=== PATIENT | female | born 1950 | race Two or more races ===

== ENCOUNTER 2018-02-21 15:28 | Emergency (ER) | payer OTHER ==
[~2018-02-21] VITALS: Ht 160 cm; Wt 90.7 kg
[~2018-02-21 15:28] MED LIST: ADVAIR 2501 DISK W/1 IH; ALBUTEROL; CLARINEX5 MG/TAB PO; PROVENTIL3 ML/2.5 M IH; SINGULAIR
[2018-02-21] MEDS ORDERED: NEURONTIN300 MG (16:40)
[2018-02-21] MEDS ORDERED: LIPITOR40 MG (16:40)
[2018-02-21] MEDS ORDERED: SYNTHROID200 MCG (16:40)
[2018-02-21] MEDS ORDERED: METFORMIN HCL500 MG (16:40)
[2018-02-21] MEDS ORDERED: ASPIR 8181 MG (16:41)
[2018-02-21] MEDS ORDERED: CALCITRIOL0.5 MCG (16:41)
[2018-02-21] MEDS ORDERED: ISOSORBIDE DINI30 MG (16:42)
[2018-02-21] MEDS ORDERED: FUROSEMIDE20 MG (16:42)
[2018-02-21] MEDS ORDERED: SINGULAIR10 MG (16:43)
[2018-02-21] MEDS ORDERED: DOLOGESIC-DF 51 EACH (16:43)
[2018-02-21] MEDS ORDERED: PEPCID20 MG (16:43)
[2018-02-21] MEDS ORDERED: ATACAND16 MG (16:43)
[2018-02-21] MEDS ORDERED: CATAFLAN (16:44)
== END 2018-02-21 20:58 | disposition home or self-care (01) ==
LOC: ER 15:28
DX: R19.04 Left lower quadrant abdominal swelling, mass and lump (principal)

== ENCOUNTER 2018-06-26 08:58 | Emergency (ER) | payer OTHER ==
[~2018-06-26] VITALS: Ht 157.5 cm; Wt 104.3 kg
[~2018-06-26 08:58] MED LIST changes: +ASPIR 8181 MG; +ATACAND16 MG; +CALCITRIOL0.5 MCG; +CATAFLAN; +DOLOGESIC-DF 51 EACH; +FUROSEMIDE20 MG; +ISOSORBIDE DINI30 MG; +LIPITOR40 MG; +METFORMIN HCL500 MG; +NEURONTIN300 MG; +PEPCID20 MG; +SINGULAIR10 MG; +SYNTHROID200 MCG
[2018-06-26] MEDS ORDERED: ADVAIR HFA 115/12 GM (09:09)
== END 2018-06-26 18:41 | disposition home or self-care (01) ==
LOC: ER 08:58
DX: J45.998 Other asthma (principal); J22 Unspecified acute lower respiratory infection; J11.1 Influenza due to unidentified influenza virus with other respiratory manifestations

== ENCOUNTER 2024-10-12 16:23 | Inpatient (IN) | payer OTHER ==
[~2024-10-12] VITALS: Ht 162.6 cm; Wt 90.7 kg
[~2024-10-12 16:23] MED LIST changes: +ADVAIR HFA 115/12 GM
[2024-10-12] MEDS ORDERED: METFORMIN HCL500 M4 PO (16:27)
[2024-10-12] MEDS ORDERED: ATORVASTATIN CA40 MG PO (16:27)
[2024-10-12] MEDS ORDERED: CLONAZEPAM0.5 MG PO (16:27)
[2024-10-12] MEDS ORDERED: ST. JOSEPH ASPI81 M2 PO (16:28)
[2024-10-12] MEDS ORDERED: CANDESARTAN CIL16 MG PO (16:28)
[2024-10-12] MEDS ORDERED: SYNTHROID175 MCG PO (16:28)
[2024-10-12] MEDS ORDERED: BUSPIRONE HCL10 MG PO (16:28)
[2024-10-12 17:20] LABS: HEMATOCRIT 24.8 % (36.0-45.00); MEAN CELL VOLUME 88.9 fL (80.00-100.00); MEAN CORPUSCULAR HGB CONC 33.2 g/dl (32.0-36.0); PLATELET COUNT 214 K/uL (150-450); RED BLOOD COUNT 2.79 M/uL (4.00-6.00); RED CELL DISTRIBUTION WIDTH 14.9 % (11.5-14.5)
[2024-10-12 17:21] LABS: HEMOGLOBIN 8.2 g/dL (12.0-15.00); MEAN CORPUSCULAR HEMOGLOBIN 29.3 pg (27.00-32.0)
[2024-10-12 17:26] LABS: ERYTHROCYTE SEDIMENTATION RATE 125 mm/hr
[2024-10-12 17:32] LABS: ABG PH 7.416 (7.35-7.45); ABG PO2 64.1 mmHg (80-100); BASE EXCESS 10.6 mmol/l; BICARBONATE 37.7 mmol/l (23-25); SaO2 93.1 %; Tco2 39.6 mmol/l
[2024-10-12] MEDS ORDERED: LEVALBUTEROL HCL 1.25 MG/3 ML SOLUTION IH SCH (17:37)
[2024-10-12] MEDS ORDERED: LEVALBUTEROL HCL 1.25 MG/3 ML SOLUTION IH ONE ×2 (17:38→22:13)
[2024-10-12 17:45] LABS: allen test SATISFACTORY; o2 21 %; puncture site BRADIAL RIGHT
[2024-10-12 17:45] LABS: ALBUMIN 2.3 gm/dL (3.4-5.0); BILIRUBIN TOTAL 0.48 mg/dL (0.3-1.2); CALCIUM 7.7 mg/dL (8.5-10.1); CREATININE SERUM 0.38 mg/dL (0.55-1.02); GFR 165.09; GLOBULINA 3.2 G/DL (2.4-3.5); POTASSIUM 3.83 mEq/L (3.5-5.1); TOTAL PROTEIN 5.5 gm/dL (6.4-8.2)
[2024-10-12 17:53] LABS: C-REACTIVE PROTEIN 7.39 MG/DL (0.00-0.29)
[2024-10-12 17:57] LABS: URINE APPEARANCE Clear; URINE BILIRRUBIN Negative (NEGATIVE); URINE BLOOD Negative; URINE COLOR Yellow; URINE GLUCOSE Negative (NEGATIVE); URINE KETONE Negative (NEGATIVE); URINE LEUKOCYTE Negative; URINE NITRATE Negative; URINE PROTEIN Trace (NEGATIVE)
[2024-10-12 18:00] LABS: URINE BACTERIA 8.5 uL (0.0-1933); URINE EPITHELIAL CELLS 6.4 uL (0.0-38.8); URINE RBC 8.2 uL (0.0-20.8); URINE WBC 11.2 uL (0.0-23.2)
[2024-10-12 18:27] LABS: URINE CAST 0.14 uL (0.0-1.40); URINE EPITHELIAL CELLS 0-4 /HPF
[2024-10-12] MEDS ORDERED: PIPERACILLIN/TAZOBACTAM SODIUM 3.375 GM in DEXTROSE 5 % IN WATER 100 ML IV SCH (19:34)
[2024-10-12] MEDS ORDERED: IPRATROPIUM BROMIDE 0.5 MG/2.5 ML AMPUL.NEB IH SCH (19:38)
[2024-10-12] MEDS ORDERED: FUROsemide 20 MG/2 ML VIAL IV SCH ×2 (19:45→21:00)
[2024-10-12] MEDS ORDERED: INSULIN LISPRO 1,000 UNIT/10 ML UNITS SUBCUTANEO PRN (19:45)
[2024-10-12] MEDS ORDERED: DEXTROSE 50 % IN WATER 0.5 G/ML DISP.SYRIN IV PRN (19:45)
[2024-10-12] MEDS ORDERED: ACETAMINOPHEN 500 MG GEL..CAP PO PRN (19:45)
[2024-10-12] MEDS ORDERED: IPRATROPIUM BROMIDE 0.5 MG/2.5 ML AMPUL.NEB IH ONE (22:13)
[2024-10-13] VITALS (9 sets, daily range): BP systolic 97–120; BP diastolic 52–70; O2SAT 96–100
[2024-10-13] MEDS ORDERED: LEVALBUTEROL HCL 1.25 MG/3 ML SOLUTION IH ONE (00:12)
[2024-10-13] MEDS ORDERED: IPRATROPIUM BROMIDE 0.5 MG/2.5 ML AMPUL.NEB IH ONE (00:12)
[2024-10-13] MEDS ORDERED: PIPERACILLIN/TAZOBACTAM SODIUM 3.375 GM VIAL IV ONE (00:26)
[2024-10-13] MEDS ORDERED: FUROsemide 20 MG/2 ML VIAL ONE (00:26)
[2024-10-13 01:47] LABS: ABG PH 7.414 (7.35-7.45)
[2024-10-13 01:48] LABS: BASE EXCESS 11.9 mmol/l; BICARBONATE 39.4 mmol/l (23-25); SaO2 97.7 %; Tco2 41.4 mmol/l; allen test SATISFACTORY; o2 35 %; puncture site RADIAL LEFT
[2024-10-13] MEDS ORDERED: LEVOTHYROXINE SODIUM 175 MCG TABLET PO SCH (06:00)
[2024-10-13] MEDS ORDERED: FAMOTIDINE/PF 20 MG in 0.9 % SODIUM CHLORIDE 8 ML IV PUSH SCH (09:00)
[2024-10-13] MEDS ORDERED: BUSPIRONE HCL 5 MG TABLET PO SCH ×2 (09:00→11:56)
[2024-10-13] MEDS ORDERED: CANDESARTAN CILEXETIL 16 MG TABLET PO SCH (09:00)
[2024-10-13] MEDS ORDERED: ENOXAPARIN SODIUM 40 MG/0.4 ML SYRINGE SUBCUTANEO SCH (09:00)
[2024-10-13] MEDS ORDERED: ATORVASTATIN CALCIUM 40 MG TABLET PO SCH (09:00)
[2024-10-13] MEDS ORDERED: METHYLPREDNISOLONE SOD SUCC 40 MG VIAL IV SCH (09:37)
[2024-10-13] MEDS ORDERED: SOD FERRIC GLUC COMPLX/SUCROSE 62.5 MG in 0.9 % SODIUM CHLORIDE 50 ML IV SCH (12:05)
[2024-10-13] MEDS ORDERED: LORazepam 2 MG/ML VIAL IV SCH (12:05)
[2024-10-13 14:08] LABS: ABG PH 7.436 (7.35-7.45); ABG PO2 94.2 mmHg (80-100); BASE EXCESS 12.4 mmol/l; BICARBONATE 39.5 mmol/l (23-25); SaO2 97.8 %; Tco2 41.3 mmol/l
[2024-10-13 14:49] LABS: allen test SATISFACTORY; o2 35 %; puncture site RADIAL RIGHT
[2024-10-13] MEDS ORDERED: LINEZOLID IN DEXTROSE 5% 600 MG/300 ML PIGGYBAG IV STA (15:54)
[2024-10-13 18:22] LABS: ABG PO2 168.9 mmHg (80-100); BASE EXCESS 12.7 mmol/l; BICARBONATE 40.7 mmol/l (23-25); SaO2 99.6 %; Tco2 42.7 mmol/l
[2024-10-13 18:30] LABS: ABG PH 7.407 (7.35-7.45); ABG pCO2 66.1 mmHg (35-45); allen test SATISFACTORY; o2 36 %; puncture site RADIAL LEFT
[2024-10-13] MEDS ORDERED: LINEZOLID IN DEXTROSE 5% 600 MG/300 ML PIGGYBAG IV SCH (21:00)
[2024-10-14] VITALS (9 sets, daily range): BP systolic 106–118; BP diastolic 57–72; O2SAT 89–100
[2024-10-14 07:51] LABS: CHOL HDL RATIO 3.3 (0-5.0)
[2024-10-14] MEDS ORDERED: CHLORHEXIDINE GLUCONATE 120 ML BOTTLE TOP SCH (09:00)
[2024-10-14] MEDS ORDERED: CLONAZEPAM 0.5 MG TABLET PO SCH (17:00)
[2024-10-14] MEDS ORDERED: BUSPIRONE HCL 5 MG TABLET PO SCH (17:01)
[2024-10-15] VITALS (9 sets, daily range): BP systolic 90–117; BP diastolic 48–65; O2SAT 94–99
[2024-10-15] MEDS ORDERED: LEVOTHYROXINE SODIUM 200 MCG TABLET PO SCH (06:00)
[2024-10-15 07:43] LABS: ALBUMIN 2.2 gm/dL (3.4-5.0); BILIRUBIN TOTAL 0.4 mg/dL (0.3-1.2); CALCIUM 7.1 mg/dL (8.5-10.1); CREATININE SERUM 0.77 mg/dL (0.55-1.02); GFR 73.08; GLOBULINA 3.5 G/DL (2.4-3.5); POTASSIUM 4.39 mEq/L (3.5-5.1); T4 FREE 0.91 NG/ML (0.76-1.46); TOTAL PROTEIN 5.7 gm/dL (6.4-8.2)
[2024-10-15 08:19] LABS: MEAN CELL VOLUME 87.3 fL (80.00-100.00); MEAN CORPUSCULAR HGB CONC 34.6 g/dl (32.0-36.0); PLATELET COUNT 309 K/uL (150-450); RED BLOOD COUNT 2.45 M/uL (4.00-6.00)
[2024-10-15 08:26] LABS: HEMATOCRIT 21.4 % (36.0-45.00); MEAN CORPUSCULAR HEMOGLOBIN 30.2 pg (27.00-32.0)
[2024-10-15 08:27] LABS: HEMOGLOBIN 7.4 g/dL (12.0-15.00)
[2024-10-15] MEDS ORDERED: CHOLECALCIFEROL (VITAMIN D3) 5,000 UNITS TABLET PO SCH (09:00)
[2024-10-15] MEDS ORDERED: CALCITRIOL 0.5 MCG CAPSULE PO SCH (09:00)
[2024-10-15] MEDS ORDERED: CALCIUM CARBONATE/VITAMIN D3 1 TAB TABLET PO SCH (09:00)
[2024-10-15] MEDS ORDERED: FUROsemide 20 MG/2 ML VIAL IV PRN (09:00)
[2024-10-15] MEDS ORDERED: FOLIC ACID 1 MG TABLET PO SCH (09:00)
[2024-10-15] MEDS ORDERED: Cyanocobalamin/Mecobalamin 1 TAB.SL SL SCH (09:00)
[2024-10-16] VITALS (9 sets, daily range): BP systolic 97–125; BP diastolic 50–60; O2SAT 90–100
[2024-10-16] MEDS ORDERED: METHYLPREDNISOLONE SOD SUCC 40 MG VIAL IV STA (08:45)
[2024-10-16] MEDS ORDERED: DIPHENHYDRAMINE HCL 50 MG/ML VIAL 1ML IV STA (08:46)
[2024-10-17] VITALS (9 sets, daily range): BP systolic 96–123; BP diastolic 56–70; O2SAT 90–100
[2024-10-17] MEDS ORDERED: FUROsemide 20 MG/2 ML VIAL IV SCH ×2 (09:00→10:00)
[2024-10-17] MEDS ORDERED: METHYLPREDNISOLONE SOD SUCC 40 MG VIAL IV SCH (09:00)
[2024-10-17 12:25] LABS: FERRITIN 221.6 NG/ML (8-252)
[2024-10-17 14:11] LABS: FOLIC ACID 9.55 ng/ml (4.78-20)
[2024-10-17 14:25] LABS: HEMATOCRIT 34.8 % (36.0-45.00); HEMOGLOBIN 11.4 g/dL (12.0-15.00); MEAN CELL VOLUME 88.8 fL (80.00-100.00); MEAN CORPUSCULAR HGB CONC 32.6 g/dl (32.0-36.0); PLATELET COUNT 351 K/uL (150-450); RED BLOOD COUNT 3.92 M/uL (4.00-6.00); RED CELL DISTRIBUTION WIDTH 14.8 % (11.5-14.5)
[2024-10-17 15:52] LABS: ob NEGATIVE (NEGATIVE)
[2024-10-17] MEDS ORDERED: ONDANSETRON HCL 2 MG/ML VIAL IV PRN (16:15)
[2024-10-18] VITALS (10 sets, daily range): BP systolic 104–129; BP diastolic 60–84; O2SAT 82–100
[2024-10-18 06:06] LABS: HEMATOCRIT 34.5 % (36.0-45.00); HEMOGLOBIN 11.2 g/dL (12.0-15.00); MEAN CELL VOLUME 89.1 fL (80.00-100.00); MEAN CORPUSCULAR HEMOGLOBIN 29.1 pg (27.00-32.0); MEAN CORPUSCULAR HGB CONC 32.6 g/dl (32.0-36.0); PLATELET COUNT 374 K/uL (150-450); RED BLOOD COUNT 3.87 M/uL (4.00-6.00); RED CELL DISTRIBUTION WIDTH 14.7 % (11.5-14.5)
[2024-10-18 06:59] LABS: ALBUMIN 2.6 gm/dL (3.4-5.0); BILIRUBIN TOTAL 0.48 mg/dL (0.3-1.2); CREATININE SERUM 0.98 mg/dL (0.55-1.02); GFR 55.32; GLOBULINA 3.6 G/DL (2.4-3.5); POTASSIUM 4.08 mEq/L (3.5-5.1); TOTAL PROTEIN 6.2 gm/dL (6.4-8.2)
[2024-10-18] MEDS ORDERED: BARIUM SULFATE 450 ML ORAL.SUSP PO NR (14:00)
[2024-10-18] MEDS ORDERED: LORazepam 2 MG/ML VIAL IV NR (14:15)
[2024-10-18] MEDS ORDERED: FAMOtidine 20 MG TABLET PO SCH (21:00)
[2024-10-19] VITALS (9 sets, daily range): BP systolic 114–132; BP diastolic 66–76; O2SAT 90–100
[2024-10-19] MEDS ORDERED: BARIUM SULFATE 450 ML ORAL.SUSP PO NR (06:00)
[2024-10-19] MEDS ORDERED: PREDNISONE 10 MG TABLET PO SCH (09:00)
[2024-10-19 09:37] LABS: hgb a 97.8 % (96.4-98.8); hgb a2 2.2 % (1.8-3.2); hgb f 0 % (0.0-2.0); hgb s 0 % (0.0)
[2024-10-19 18:05] LABS: g6pd quant 278 (127-427); rbc 3.87 x10E6/uL (3.77-5.28)
[2024-10-20 00:20] VITALS: O2SAT 97
[2024-10-20 04:07] VITALS: BP 110/69
[2024-10-20 05:38] VITALS: O2SAT 99
[2024-10-20 09:20] VITALS: BP 132/66
[2024-10-20 09:34] VITALS: O2SAT 98
[2024-10-20 13:50] VITALS: O2SAT 95
[2024-10-20] MEDS ORDERED: AMOX1TAB5 PO (14:51)
[2024-10-20] MEDS ORDERED: CLONAZEPAM0.5 MG PO (14:51)
[2024-10-20] MEDS ORDERED: VITAMIN D3125 MC2 PO (14:51)
[2024-10-20] MEDS ORDERED: FAMOTIDINE20 MG PO (14:51)
[2024-10-20] MEDS ORDERED: LEVOTHYROXINE200 MCG PO (14:51)
[2024-10-20] MEDS ORDERED: CALCIUM 500-VI1 EAC6 PO (14:51)
[2024-10-20] MEDS ORDERED: INTESTINEX680 M2 PO (14:51)
[2024-10-20] MEDS ORDERED: BUSPIRONE HCL5 MG PO (14:51)
[2024-10-20] MEDS ORDERED: CALCITRIOL0.5 MCG PO (14:51)
[2024-10-20] MEDS ORDERED: FOLIC ACID1 MG PO (14:51)
[2024-10-20] MEDS ORDERED: ATACAND16 MG PO (14:51)
[2024-10-20] MEDS ORDERED: Neurin-Sl Tablet Sl SL (14:51)
[2024-10-20] MEDS ORDERED: PREDNISONE10 MG PO (14:51)
== END 2024-10-20 18:29 | disposition home or self-care (01) | DRG 622 ==
LOC: ER 16:23 → MEDJ 20:52
PROVIDERS: General Practice; Internal Medicine; Internal Medicine Hematology & Oncology; ADMIT Internal Medicine; ATTEND Internal Medicine
PROC: 3E0F7GC Introduction of Other Therapeutic Substance into Respiratory Tract, Via Natural or Artificial Opening (ICD-10-PCS; 2024-10-12)
PROC: 5A09357 Assistance with Respiratory Ventilation, Less than 24 Consecutive Hours, Continuous Positive Airway Pressure (ICD-10-PCS; 2024-10-12)
PROC: 0JB70ZZ Excision of Back Subcutaneous Tissue and Fascia, Open Approach (ICD-10-PCS; 2024-10-13)
PROC: 0JBQ0ZZ Excision of Right Foot Subcutaneous Tissue and Fascia, Open Approach (ICD-10-PCS; 2024-10-13)
PROC: B246ZZZ Ultrasonography of Right and Left Heart (ICD-10-PCS; 2024-10-13)
PROC: 4A12X4Z Monitoring of Cardiac Electrical Activity, External Approach (ICD-10-PCS; 2024-10-13)
PROC: B32TYZZ Computerized Tomography (CT Scan) of Left Pulmonary Artery using Other Contrast (ICD-10-PCS; 2024-10-15)
PROC: B32SYZZ Computerized Tomography (CT Scan) of Right Pulmonary Artery using Other Contrast (ICD-10-PCS; 2024-10-15)
PROC: 02HV33Z Insertion of Infusion Device into Superior Vena Cava, Percutaneous Approach (ICD-10-PCS; 2024-10-16)
PROC: 30233N1 Transfusion of Nonautologous Red Blood Cells into Peripheral Vein, Percutaneous Approach (ICD-10-PCS; 2024-10-16)
PROC: BW21ZZZ Computerized Tomography (CT Scan) of Abdomen and Pelvis (ICD-10-PCS; 2024-10-19)
PROC: 0JB70ZZ Excision of Back Subcutaneous Tissue and Fascia, Open Approach (ICD-10-PCS; principal; 2024-10-20)
PROC: 0JBQ0ZZ Excision of Right Foot Subcutaneous Tissue and Fascia, Open Approach (ICD-10-PCS; 2024-10-20)
PROC: 0JBR0ZZ Excision of Left Foot Subcutaneous Tissue and Fascia, Open Approach (ICD-10-PCS; 2024-10-20)
DX: E11.621 Type 2 diabetes mellitus with foot ulcer (principal); I50.23 Acute on chronic systolic (congestive) heart failure; L89.894 Pressure ulcer of other site, stage 4; J96.02 Acute respiratory failure with hypercapnia; J44.1 Chronic obstructive pulmonary disease with (acute) exacerbation; E87.1 Hypo-osmolality and hyponatremia; L89.612 Pressure ulcer of right heel, stage 2; L89.152 Pressure ulcer of sacral region, stage 2; D64.89 Other specified anemias; E86.0 Dehydration; I11.0 Hypertensive heart disease with heart failure; D63.8 Anemia in other chronic diseases classified elsewhere; I27.20 Pulmonary hypertension, unspecified; J98.4 Other disorders of lung; E83.51 Hypocalcemia; K59.09 Other constipation; R19.04 Left lower quadrant abdominal swelling, mass and lump; F41.0 Panic disorder [episodic paroxysmal anxiety]; G47.33 Obstructive sleep apnea (adult) (pediatric); Z79.84 Long term (current) use of oral hypoglycemic drugs; Z74.01 Bed confinement status; Z88.1 Allergy status to other antibiotic agents; B95.61 Methicillin susceptible Staphylococcus aureus infection as the cause of diseases classified elsewhere

== ENCOUNTER 2024-11-08 00:17 | Inpatient (IN) | payer OTHER ==
[~2024-11-08] VITALS: Ht 152.4 cm; Wt 90.7 kg
[~2024-11-08 00:17] MED LIST changes: +AMOX1TAB5 PO; +ATACAND16 MG PO; +ATORVASTATIN CA40 MG PO; +BUSPIRONE HCL10 MG PO; +BUSPIRONE HCL5 MG PO; +CALCITRIOL0.5 MCG PO; +CALCIUM 500-VI1 EAC6 PO; +CANDESARTAN CIL16 MG PO; +CLONAZEPAM0.5 MG PO; +FAMOTIDINE20 MG PO; +FOLIC ACID1 MG PO; +INTESTINEX680 M2 PO; +LEVOTHYROXINE200 MCG PO; +METFORMIN HCL500 M4 PO; +Neurin-Sl Tablet Sl SL; +PREDNISONE10 MG PO; +ST. JOSEPH ASPI81 M2 PO; +SYNTHROID175 MCG PO; +SYNTHROID50 MCG; +VITAMIN D3125 MC2 PO
[2024-11-08] MEDS ORDERED: LEVALBUTEROL HCL 0.63 MG/3 ML SOLUTION IH STA (01:32)
[2024-11-08 02:01] LABS: HEMATOCRIT 30.7 % (36.0-45.00); MEAN CELL VOLUME 91.1 fL (80.00-100.00); MEAN CORPUSCULAR HEMOGLOBIN 29.6 pg (27.00-32.0); MEAN CORPUSCULAR HGB CONC 32.4 g/dl (32.0-36.0); PLATELET COUNT 202 K/uL (150-450); RED BLOOD COUNT 3.37 M/uL (4.00-6.00)
[2024-11-08] MEDS ORDERED: LEVALBUTEROL HCL 0.63 MG/3 ML SOLUTION IH ONE ×2 (02:09→09:22)
[2024-11-08 02:17] LABS: ABG PH 7.303 (7.35-7.45); ABG PO2 115.1 mmHg (80-100); BASE EXCESS 4.9 mmol/l; BICARBONATE 33.9 mmol/l (23-25)
[2024-11-08 02:38] LABS: ALBUMIN 2.4 gm/dL (3.4-5.0); BILIRUBIN TOTAL 0.46 mg/dL (0.3-1.2); CREATININE SERUM 0.58 mg/dL (0.55-1.02); GFR 101.34; GLOBULINA 3.4 G/DL (2.4-3.5); POTASSIUM 3.6 mEq/L (3.5-5.1); TOTAL PROTEIN 5.8 gm/dL (6.4-8.2)
[2024-11-08 02:42] LABS: ABG pCO2 69.9 mmHg (35-45); allen test SATISFACTORY
[2024-11-08 02:43] LABS: o2 32 %; puncture site RADIAL RIGHT
[2024-11-08 02:53] LABS: CALCIUM 5.6 mg/dL (8.5-10.1)
[2024-11-08] MEDS ORDERED: CALCIUM GLUCONATE 100 MG/ML VIAL IV ONE ×2 (04:15→23:00)
[2024-11-08] MEDS ORDERED: CALCIUM GLUCONATE 100 MG/ML VIAL ONE ×2 (04:23→22:34)
[2024-11-08] MEDS ORDERED: LEVALBUTEROL HCL 0.63 MG/3 ML SOLUTION IH SCH ×2 (08:15→09:00)
[2024-11-08] MEDS ORDERED: LORazepam 1 MG TABLET PO STA (12:53)
[2024-11-08] MEDS ORDERED: 0.9 % SODIUM CHLORIDE 1,000 ML IV SCH (19:15)
[2024-11-08] MEDS ORDERED: ACETAMINOPHEN 500 MG GEL..CAP PO PRN (19:15)
[2024-11-08] MEDS ORDERED: CALCITRIOL 0.5 MCG CAPSULE PO SCH (19:15)
[2024-11-08] MEDS ORDERED: AZITHROMYCIN 500 MG in 0.9 % SODIUM CHLORIDE 250 ML IV SCH (19:15)
[2024-11-08] MEDS ORDERED: ENOXAPARIN SODIUM 40 MG/0.4 ML SYRINGE SUBCUTANEO SCH (19:16)
[2024-11-08 19:31] LABS: ALBUMIN 2.3 gm/dL (3.4-5.0); BILIRUBIN TOTAL 0.38 mg/dL (0.3-1.2); CREATININE SERUM 0.58 mg/dL (0.55-1.02); GFR 101.34; GLOBULINA 3.4 G/DL (2.4-3.5); POTASSIUM 3.73 mEq/L (3.5-5.1); TOTAL PROTEIN 5.7 gm/dL (6.4-8.2)
[2024-11-08 19:38] LABS: CALCIUM 5.9 mg/dL (8.5-10.1)
[2024-11-08 20:06] LABS: ABG PH 7.374 (7.35-7.45); ABG PO2 174.9 mmHg (80-100); BICARBONATE 34.4 mmol/l (23-25); SaO2 99.5 %; Tco2 36.3 mmol/l
[2024-11-08 20:16] LABS: ABG pCO2 60.4 mmHg (35-45); allen test SATISFACTORY; o2 50 %; puncture site RADIAL LEFT
[2024-11-08 20:42] LABS: D DIMER 1.05 MG/L; PARTIAL THROMBOPLASTIN TIME 30.8 SECONDS (22.0-34.0)
[2024-11-08 20:48] LABS: INR 1.05; PROTHROMBIN TIME 11.4 SECONDS (9.0-11.5)
[2024-11-08] MEDS ORDERED: AZITHROMYCIN 500 MG VIAL IV ONE (20:59)
[2024-11-08] MEDS ORDERED: ENOXAPARIN SODIUM 40 MG/0.4 ML SYRINGE SUBCUTANEO ONE (20:59)
[2024-11-08] MEDS ORDERED: IPRATROPIUM BROMIDE 0.5 MG/2.5 ML AMPUL.NEB IH SCH (21:00)
[2024-11-08] MEDS ORDERED: LEVALBUTEROL HCL 1.25 MG/3 ML SOLUTION IH SCH (21:00)
[2024-11-08 21:06] LABS: MAGNESIUM 1.6 mg/dL (1.8-2.4)
[2024-11-08 21:07] LABS: C-REACTIVE PROTEIN 8.4 MG/DL (0.00-0.29)
[2024-11-08 21:37] LABS: PH,URINE 5.5 (5.0-8.0); URINE APPEARANCE Cloudy; URINE BILIRRUBIN Negative (NEGATIVE); URINE BLOOD Large; URINE COLOR Dark Yellow; URINE GLUCOSE Negative (NEGATIVE); URINE KETONE Negative (NEGATIVE); URINE LEUKOCYTE Small; URINE NITRATE Negative
[2024-11-08 21:38] LABS: URINE BACTERIA 74.6 uL (0.0-1933)
[2024-11-08] MEDS ORDERED: 0.9 % SODIUM CHLORIDE 1,000 ML IV ONE (21:45)
[2024-11-08] MEDS ORDERED: MAGNESIUM SULFATE 1,000 MG in 0.9 % SODIUM CHLORIDE 50 ML IV ONE (21:45)
[2024-11-08 21:57] LABS: URINE CAST 0.14 uL (0.0-1.40); URINE EPITHELIAL CELLS 1.2 uL (0.0-38.8); URINE PROTEIN 100 (NEGATIVE)
[2024-11-08 22:17] VITALS: BP 82/47; O2SAT 100
[2024-11-08 22:18] VITALS: BP 132/76
[2024-11-08] MEDS ORDERED: MAGNESIUM SULFATE 50% 1,000 MG/2 ML VIAL ONE (22:33)
[2024-11-08 23:00] VITALS: BP 79/46; O2SAT 100
[2024-11-08] MEDS ORDERED: NOREPINEPHRINE BITARTRATE 8 MG in DEXTROSE 5 % IN WATER 250 ML IV SCH (23:15)
[2024-11-08] MEDS ORDERED: NOREPINEPHRINE BITARTRATE 1 MG/ML AMPUL IV ONE (23:39)
[2024-11-09] VITALS (14 sets, daily range): BP systolic 91–127; BP diastolic 57–98; O2SAT 18–100
[2024-11-09] MEDS ORDERED: CALCIUM GLUCONATE 100 MG/ML VIAL ONE (01:05)
[2024-11-09] MEDS ORDERED: LEVALBUTEROL HCL 0.63 MG/3 ML SOLUTION IH ONE ×3 (02:06→08:07)
[2024-11-09] MEDS ORDERED: IPRATROPIUM BROMIDE 0.5 MG/2.5 ML AMPUL.NEB IH ONE ×2 (05:31→08:07)
[2024-11-09] MEDS ORDERED: LEVOTHYROXINE SODIUM 200 MCG TABLET PO SCH (06:00)
[2024-11-09] MEDS ORDERED: CHLORHEXIDINE GLUCONATE 120 ML BOTTLE TOP ONE (08:43)
[2024-11-09] MEDS ORDERED: CEFTRIAXONE SODIUM 2,000 MG in 0.9 % SODIUM CHLORIDE 100 ML IV SCH (09:00)
[2024-11-09] MEDS ORDERED: CANDESARTAN CILEXETIL 16 MG TABLET PO SCH (09:00)
[2024-11-09] MEDS ORDERED: AMINO ACIDS/PROTEIN HYDROLYS 30 ML BLIST.PACK PO SCH (09:00)
[2024-11-09] MEDS ORDERED: ATORVASTATIN CALCIUM 40 MG TABLET PO SCH (09:00)
[2024-11-09] MEDS ORDERED: METHYLPREDNISOLONE SOD SUCC 40 MG VIAL IV SCH (10:11)
[2024-11-09 11:10] LABS: ABG PH 7.403 (7.35-7.45); ABG PO2 123.9 mmHg (80-100); ABG pCO2 48.5 mmHg (35-45); BASE EXCESS 3.8 mmol/l; BICARBONATE 29.5 mmol/l (23-25); SaO2 98.8 %
[2024-11-09 11:11] LABS: allen test SATISFACTORY; o2 40 %; puncture site RADIAL RIGHT
[2024-11-09] MEDS ORDERED: METHYLPREDNISOLONE SOD SUCC 40 MG VIAL ONE (13:49)
[2024-11-09] MEDS ORDERED: LACTOBACILLUS ACIDOPHILUS 1 CAP CAP PO SCH (17:00)
[2024-11-09] MEDS ORDERED: PIPERACILLIN/TAZOBACTAM SODIUM 3.375 GM VIAL IV SCH (18:00)
[2024-11-09] MEDS ORDERED: CALCITRIOL 0.5 MCG CAPSULE PO STA (20:06)
[2024-11-10] VITALS (13 sets, daily range): BP systolic 89–106; BP diastolic 47–85; O2SAT 97–100
[2024-11-10] MEDS ORDERED: CHOLECALCIFEROL (VITAMIN D3) 5,000 UNITS TABLET PO SCH (09:00)
[2024-11-10] MEDS ORDERED: CHLORHEXIDINE GLUCONATE 120 ML BOTTLE TOP SCH (09:00)
[2024-11-10] MEDS ORDERED: CALCIUM CARBONATE/VITAMIN D3 1 TAB TABLET PO SCH (09:00)
[2024-11-10] MEDS ORDERED: CLONAZEPAM 0.5 MG TABLET PO SCH (09:32)
[2024-11-10 11:44] LABS: HEMATOCRIT 28.5 % (36.0-45.00); HEMOGLOBIN 9.3 g/dL (12.0-15.00); MEAN CELL VOLUME 90.9 fL (80.00-100.00); MEAN CORPUSCULAR HEMOGLOBIN 29.8 pg (27.00-32.0); MEAN CORPUSCULAR HGB CONC 32.8 g/dl (32.0-36.0); PLATELET COUNT 214 K/uL (150-450); RED BLOOD COUNT 3.14 M/uL (4.00-6.00); RED CELL DISTRIBUTION WIDTH 15.5 % (11.5-14.5)
[2024-11-10] MEDS ORDERED: AMIODARONE HCL 50 MG/ML AMPUL IV NR (11:47)
[2024-11-10 12:00] LABS: ABG PH 7.344 (7.35-7.45); ABG PO2 83.4 mmHg (80-100); ABG pCO2 53.5 mmHg (35-45); BASE EXCESS 1.6 mmol/l; BICARBONATE 28.4 mmol/l (23-25); SaO2 95.5 %; Tco2 30.1 mmol/l; allen test SATISFACTORY; puncture site RADIAL RIGHT
[2024-11-10 12:01] LABS: o2 28 %
[2024-11-10 12:29] LABS: ALBUMIN 2.4 gm/dL (3.4-5.0); BILIRUBIN TOTAL 0.33 mg/dL (0.3-1.2); CREATININE SERUM 0.75 mg/dL (0.55-1.02); GFR 75.33; GLOBULINA 3.6 G/DL (2.4-3.5); POTASSIUM 3.89 mEq/L (3.5-5.1)
[2024-11-10 12:48] LABS: CALCIUM 5.9 mg/dL (8.5-10.1)
[2024-11-10] MEDS ORDERED: GABAPENTIN 100 MG CAPSULE PO SCH ×2 (13:00)
[2024-11-10] MEDS ORDERED: LevETIRAcetam 500 MG/5 ML VIAL IV ONE (15:14)
[2024-11-10] MEDS ORDERED: LevETIRAcetam 500 MG/5 ML VIAL IV SCH (15:25)
[2024-11-10] MEDS ORDERED: LORazepam 2 MG/ML VIAL ONE (15:33)
[2024-11-10] MEDS ORDERED: LORazepam 2 MG/ML VIAL IV PRN ×2 (15:45→18:18)
[2024-11-10 18:07] LABS: ABG PH 7.393 (7.35-7.45); ABG PO2 161.4 mmHg (80-100); ABG pCO2 42.9 mmHg (35-45); BASE EXCESS 0.4 mmol/l; BICARBONATE 25.6 mmol/l (23-25); SaO2 99.4 %; Tco2 26.9 mmol/l
[2024-11-10 20:34] LABS: allen test SATISFACTORY; o2 36 %; puncture site RADIAL LEFT
[2024-11-11] VITALS (11 sets, daily range): BP systolic 85–114; BP diastolic 62–80; O2SAT 96–100
[2024-11-11] MEDS ORDERED: LevETIRAcetam 500 MG/5 ML VIAL IV SCH (05:00)
[2024-11-11 08:43] LABS: ABG PH 7.309 (7.35-7.45); ABG PO2 144.2 mmHg (80-100); ABG pCO2 58.8 mmHg (35-45); BASE EXCESS 1.1 mmol/l; BICARBONATE 28.9 mmol/l (23-25); SaO2 98.9 %; Tco2 30.7 mmol/l; allen test SATISFACTORY; puncture site RADIAL RIGHT
[2024-11-11 08:44] LABS: o2 32 %
[2024-11-11] MEDS ORDERED: DEXTROSE 50 % IN WATER 0.5 G/ML DISP.SYRIN IV PRN (08:45)
[2024-11-11] MEDS ORDERED: INSULIN LISPRO 1,000 UNIT/10 ML UNITS SUBCUTANEO PRN (08:45)
[2024-11-11] MEDS ORDERED: CALCITRIOL 0.5 MCG CAPSULE PO SCH (09:00)
[2024-11-11] MEDS ORDERED: FUROsemide 20 MG/2 ML VIAL IV SCH (17:10)
[2024-11-11] MEDS ORDERED: CALCIUM GLUCONATE 100 MG/ML VIAL IV ONE (17:15)
[2024-11-11] MEDS ORDERED: HALOPERIDOL LACTATE 5 MG/ML AMPUL IM PRN (17:15)
[2024-11-11] MEDS ORDERED: LevETIRAcetam 500 MG/5 ML VIAL IV ONE (18:30)
[2024-11-12] VITALS: BP 92/52; O2SAT 98
[2024-11-12 04:00] VITALS: BP 98/62; O2SAT 99
[2024-11-12] MEDS ORDERED: LevETIRAcetam 500 MG/5 ML VIAL IV SCH (05:00)
[2024-11-12 07:18] LABS: ALBUMIN 2.5 gm/dL (3.4-5.0); BILIRUBIN TOTAL 0.28 mg/dL (0.3-1.2); CREATININE SERUM 0.94 mg/dL (0.55-1.02); GFR 58.05; GLOBULINA 3.2 G/DL (2.4-3.5); POTASSIUM 3.63 mEq/L (3.5-5.1); TOTAL PROTEIN 5.7 gm/dL (6.4-8.2)
[2024-11-12 07:25] VITALS: BP 102/70
[2024-11-12 07:56] LABS: CALCIUM 5.9 mg/dL (8.5-10.1)
[2024-11-12] MEDS ORDERED: AMIODARONE HCL 200 MG TABLET PO SCH (09:00)
[2024-11-12 11:57] VITALS: BP 112/76; O2SAT 100
[2024-11-12 15:00] VITALS: BP 101/64; O2SAT 100
[2024-11-12] MEDS ORDERED: LevETIRAcetam 5 MG/1 ML REDILUIDO IV SCH (17:00)
[2024-11-12] MEDS ORDERED: CEFEPIME HCL 2,000 MG in DEXTROSE 5 % IN WATER 100 ML IV SCH ×2 (17:00→21:00)
[2024-11-12] MEDS ORDERED: AMPICILLIN SODIUM/SULBACTAM NA 3,000 MG VIAL IV SCH (17:00)
[2024-11-12] MEDS ORDERED: AMPICILLIN SODIUM/SULBACTAM NA 3,000 MG in 0.9 % SODIUM CHLORIDE 100 ML IV SCH (17:00)
[2024-11-12 20:00] VITALS: BP 104/88; O2SAT 98
[2024-11-13] VITALS (7 sets, daily range): BP systolic 100–140; BP diastolic 59–109; O2SAT 90–100
[2024-11-13 07:17] LABS: ALBUMIN 2.5 gm/dL (3.4-5.0); BILIRUBIN TOTAL 0.27 mg/dL (0.3-1.2); CREATININE SERUM 0.9 mg/dL (0.55-1.02); GFR 61.04; GLOBULINA 3.2 G/DL (2.4-3.5); POTASSIUM 3.89 mEq/L (3.5-5.1); TOTAL PROTEIN 5.7 gm/dL (6.4-8.2)
[2024-11-13 07:19] LABS: HEMATOCRIT 25.6 % (36.0-45.00); MEAN CELL VOLUME 91.2 fL (80.00-100.00); MEAN CORPUSCULAR HEMOGLOBIN 30.2 pg (27.00-32.0); MEAN CORPUSCULAR HGB CONC 33.1 g/dl (32.0-36.0); RED BLOOD COUNT 2.81 M/uL (4.00-6.00); RED CELL DISTRIBUTION WIDTH 16.3 % (11.5-14.5)
[2024-11-13 07:25] LABS: HEMOGLOBIN 8.5 g/dL (12.0-15.00)
[2024-11-13 07:26] LABS: PLATELET COUNT 193 K/uL (150-450)
[2024-11-13 07:28] LABS: CALCIUM 6.4 mg/dL (8.5-10.1)
[2024-11-13] MEDS ORDERED: CALCIUM CARBONATE/VITAMIN D3 1 TAB TABLET PO SCH (09:00)
[2024-11-13] MEDS ORDERED: CALCITRIOL 0.5 MCG CAPSULE PO SCH (09:00)
[2024-11-13] MEDS ORDERED: Cyanocobalamin/Mecobalamin 1 TAB.SL SL SCH (12:53)
[2024-11-13] MEDS ORDERED: SOD FERRIC GLUC COMPLX/SUCROSE 62.5 MG in 0.9 % SODIUM CHLORIDE 50 ML IV SCH (12:53)
[2024-11-13] MEDS ORDERED: TRAMADOL HCL 50 MG TABLET PO SCH (22:14)
[2024-11-13] MEDS ORDERED: ONDANSETRON HCL 4 MG in 0.9 % SODIUM CHLORIDE 50 ML IV PRN (22:15)
[2024-11-14] VITALS (8 sets, daily range): BP systolic 105–113; BP diastolic 61–74; O2SAT 95–100
[2024-11-14] MEDS ORDERED: METHYLPREDNISOLONE SOD SUCC 40 MG VIAL IV SCH (09:00)
[2024-11-14] MEDS ORDERED: CALCIUM GLUCONATE 100 MG/ML VIAL IV NR (09:00)
[2024-11-15] VITALS (9 sets, daily range): BP systolic 96–113; BP diastolic 56–66; O2SAT 90–100
[2024-11-15 07:26] LABS: HEMATOCRIT 27.3 % (36.0-45.00); MEAN CELL VOLUME 92.3 fL (80.00-100.00); MEAN CORPUSCULAR HEMOGLOBIN 29.7 pg (27.00-32.0); MEAN CORPUSCULAR HGB CONC 32.2 g/dl (32.0-36.0); PLATELET COUNT 184 K/uL (150-450); RED BLOOD COUNT 2.96 M/uL (4.00-6.00); RED CELL DISTRIBUTION WIDTH 16.3 % (11.5-14.5)
[2024-11-15 07:28] LABS: HEMOGLOBIN 8.8 g/dL (12.0-15.00)
[2024-11-15 07:36] LABS: ERYTHROCYTE SEDIMENTATION RATE 31 mm/hr
[2024-11-15 08:25] LABS: ALBUMIN 2.5 gm/dL (3.4-5.0); ALKALINE PHOSPHATASE 61 U/L (50-136); ALT/SGPT 42 U/L (12-78); AST/SGOT 19 U/L (15-37); BILIRUBIN TOTAL 0.21 mg/dL (0.3-1.2); BLOOD UREA NITROGEN 23 mg/dL (7-18); BUN CREA RATIO 27 (7.0-25.0); CALCIUM 6.8 mg/dL (8.5-10.1); CARBON DIOXIDE 37 mEq/L (21-32); CHLORIDE 109 mmol/L (98-107); CREATININE SERUM 0.86 mg/dL (0.55-1.02); GFR 64.32; GLOBULINA 3.3 G/DL (2.4-3.5); GLUCOSE FASTING 147 mg/dL (65-100); OSMOLALITY SERUM 286 MOSM/KG (275-295); POTASSIUM 3.77 mEq/L (3.5-5.1); SODIUM 140 mmol/L (136-145); TOTAL PROTEIN 5.8 gm/dL (6.4-8.2)
[2024-11-15 08:28] LABS: C-REACTIVE PROTEIN 1.48 MG/DL (0.00-0.29)
[2024-11-15] MEDS ORDERED: FUROsemide 20 MG/2 ML VIAL IV SCH (13:15)
[2024-11-15] MEDS ORDERED: VITAMIN B COMPLEX 1 EACH PO SCH (17:00)
[2024-11-15] MEDS ORDERED: Cyanocobalamin/Mecobalamin 1 TAB.SL SL SCH (17:00)
[2024-11-15] MEDS ORDERED: PANTOPRAZOLE SODIUM 40 MG in 0.9 % SODIUM CHLORIDE 8 ML IV PUSH NR (19:00)
[2024-11-15 19:19] LABS: FERRITIN 374.5 NG/ML (8-252)
[2024-11-15] MEDS ORDERED: FAMOTIDINE/PF 20 MG/2 ML VIAL IV PUSH SCH (21:00)
[2024-11-16] VITALS (8 sets, daily range): BP systolic 117–133; BP diastolic 78–82; O2SAT 94–100
[2024-11-16] MEDS ORDERED: VITAMIN B COMPLEX/LYSINE 15 ML BLIST.PACK PO SCH (09:00)
[2024-11-16] MEDS ORDERED: PANTOPRAZOLE SODIUM 40 MG in 0.9 % SODIUM CHLORIDE 8 ML IV PUSH SCH (09:00)
[2024-11-17] VITALS (8 sets, daily range): BP systolic 111–152; BP diastolic 62–74; O2SAT 90–98
[2024-11-17 03:33] LABS: HEMOGLOBIN 10.9 g/dL (12.0-15.00); MEAN CELL VOLUME 88.8 fL (80.00-100.00); MEAN CORPUSCULAR HEMOGLOBIN 29.2 pg (27.00-32.0); MEAN CORPUSCULAR HGB CONC 32.9 g/dl (32.0-36.0); PLATELET COUNT 146 K/uL (150-450); RED BLOOD COUNT 3.72 M/uL (4.00-6.00); RED CELL DISTRIBUTION WIDTH 16.5 % (11.5-14.5)
[2024-11-17] MEDS ORDERED: LASIX20 MG PO (16:32)
[2024-11-17] MEDS ORDERED: INTESTINEX680 M1 PO (16:32)
[2024-11-17] MEDS ORDERED: CALCIUM 500-VI1 EAC6 PO (16:32)
[2024-11-17] MEDS ORDERED: PEPCID AC20 MG PO (16:32)
[2024-11-17] MEDS ORDERED: B Complex PO (16:32)
[2024-11-17] MEDS ORDERED: KEPPRA750 MG PO (16:32)
[2024-11-17] MEDS ORDERED: LIPITOR40 M1 PO (16:32)
[2024-11-17] MEDS ORDERED: APETIGEN P12.5 MG/15 PO (16:32)
[2024-11-17] MEDS ORDERED: CALCITRIOL0.5 MCG PO (16:32)
[2024-11-17] MEDS ORDERED: Neurin-Sl Tablet Sl SL (16:32)
[2024-11-17] MEDS ORDERED: PROTEINEX-18 LI30 ML PO (16:32)
[2024-11-17] MEDS ORDERED: ATACAND16 MG PO (16:32)
[2024-11-17] MEDS ORDERED: VITAMIN D3125 MC2 PO (16:32)
[2024-11-17] MEDS ORDERED: GABAPENTIN100 MG PO (16:32)
[2024-11-17] MEDS ORDERED: PROTONIX40 MG PO (16:32)
[2024-11-17] MEDS ORDERED: LEVOTHYROXINE200 MCG PO (16:32)
[2024-11-17] MEDS ORDERED: FAMOtidine 20 MG TABLET PO SCH (21:00)
== END 2024-11-17 21:39 | disposition home or self-care (01) | DRG 987 ==
LOC: ER 00:17 → EDBD 00:18 → ICU-2 21:46 → ICU 11-09 18:33 → SURH 11-13 20:10
PROVIDERS: General Practice; Internal Medicine; Internal Medicine Endocrinology, Diabetes & Metabolism; Internal Medicine Hematology & Oncology; Specialist; ADMIT Internal Medicine; ATTEND Internal Medicine
PROC: BB24ZZZ Computerized Tomography (CT Scan) of Bilateral Lungs (ICD-10-PCS; 2024-11-08)
PROC: 02HV33Z Insertion of Infusion Device into Superior Vena Cava, Percutaneous Approach (ICD-10-PCS; 2024-11-09)
PROC: 3E0F7GC Introduction of Other Therapeutic Substance into Respiratory Tract, Via Natural or Artificial Opening (ICD-10-PCS; 2024-11-09)
PROC: BB24ZZZ Computerized Tomography (CT Scan) of Bilateral Lungs (ICD-10-PCS; 2024-11-10)
PROC: 5A09457 Assistance with Respiratory Ventilation, 24-96 Consecutive Hours, Continuous Positive Airway Pressure (ICD-10-PCS; 2024-11-10)
PROC: 0WB Anatomical Regions, General, Excision (ICD-10-PCS; principal; 2024-11-14)
PROC: 4A12X4Z Monitoring of Cardiac Electrical Activity, External Approach (ICD-10-PCS; 2024-11-14)
PROC: 0JBR3ZZ Excision of Left Foot Subcutaneous Tissue and Fascia, Percutaneous Approach (ICD-10-PCS; 2024-11-14)
PROC: 30233N1 Transfusion of Nonautologous Red Blood Cells into Peripheral Vein, Percutaneous Approach (ICD-10-PCS; 2024-11-15)
DX: J18.9 Pneumonia, unspecified organism (principal); J96.92 Respiratory failure, unspecified with hypercapnia; E87.29 Other acidosis; J91.8 Pleural effusion in other conditions classified elsewhere; J44.1 Chronic obstructive pulmonary disease with (acute) exacerbation; L97.528 Non-pressure chronic ulcer of other part of left foot with other specified severity; L98.498 Non-pressure chronic ulcer of skin of other sites with other specified severity; E83.51 Hypocalcemia; F41.9 Anxiety disorder, unspecified; I48.91 Unspecified atrial fibrillation; I10 Essential (primary) hypertension; E03.9 Hypothyroidism, unspecified; E78.49 Other hyperlipidemia; R56.9 Unspecified convulsions; D64.89 Other specified anemias; E11.621 Type 2 diabetes mellitus with foot ulcer; L89.152 Pressure ulcer of sacral region, stage 2; L08.89 Other specified local infections of the skin and subcutaneous tissue; B95.7 Other staphylococcus as the cause of diseases classified elsewhere; B96.5 Pseudomonas (aeruginosa) (mallei) (pseudomallei) as the cause of diseases classified elsewhere; G47.33 Obstructive sleep apnea (adult) (pediatric); Z74.01 Bed confinement status; Z79.4 Long term (current) use of insulin

== ENCOUNTER 2024-11-22 19:37 | Inpatient (IN) | payer OTHER ==
[~2024-11-22] VITALS: Ht 152.4 cm; Wt 77.1 kg
[~2024-11-22 19:37] MED LIST changes: +APETIGEN P12.5 MG/15 PO; +B Complex PO; +GABAPENTIN100 MG PO; +INTESTINEX680 M1 PO; +KEPPRA750 MG PO; +LASIX20 MG PO; +LIPITOR40 M1 PO; +PEPCID AC20 MG PO; +PROTEINEX-18 LI30 ML PO; +PROTONIX40 MG PO
[2024-11-22] MEDS ORDERED: NITROGLYCERIN 250 ML IV SCH (19:45)
[2024-11-22] MEDS ORDERED: FUROsemide 40 MG/4 ML VIAL IV ONE (19:45)
[2024-11-22] MEDS ORDERED: FUROsemide 40 MG/4 ML VIAL ONE (19:56)
[2024-11-22] MEDS ORDERED: NITROGLYCERIN IN 5 % DEXTROSE 50 MG/250 ML BOTTLE IV ONE (19:56)
[2024-11-22 20:21] LABS: MEAN CELL VOLUME 89.9 fL (80.00-100.00); MEAN CORPUSCULAR HEMOGLOBIN 29.2 pg (27.00-32.0); MEAN CORPUSCULAR HGB CONC 32.5 g/dl (32.0-36.0); RED BLOOD COUNT 4.45 M/uL (4.00-6.00); RED CELL DISTRIBUTION WIDTH 16.5 % (11.5-14.5)
[2024-11-22 20:22] LABS: PLATELET COUNT 106 K/uL (150-450)
[2024-11-22 20:34] LABS: INR 1.16; PROTHROMBIN TIME 12.5 SECONDS (9.0-11.5)
[2024-11-22 20:40] LABS: ALBUMIN 2.6 gm/dL (3.4-5.0); BILIRUBIN TOTAL 0.67 mg/dL (0.3-1.2); CALCIUM 7.9 mg/dL (8.5-10.1); CREATININE SERUM 0.6 mg/dL (0.55-1.02); GFR 97.46; POTASSIUM 3.01 mEq/L (3.5-5.1); TOTAL PROTEIN 6.6 gm/dL (6.4-8.2)
--- NOTE | 2024-11-22 21:04 | NUR ---
SE RECIBE PTE DE AMBULANCIA ALERTA Y ORIENTADA X3 CON DIFICULTAD RESPIRATORIA Y EXTREMIDADES EDEMATIZADAS RECIBIEDO ASISTENCIA RESPIRATORIA POR NONREBREATHER MASK. SE ACOMODA EN CAMA Y SE CONECTA Q MONITOR CARDIACO SE CANALIZA CON ANGIO #22 EN BRAZO DERECHO POR POR EL CUAL SE ESTA ADMINSITRANDO DRIP DE TRIDIL @ 3ML/HR. SE RECOLECTAN MUESTRAS DE LAB YUMIKO ORDEN MEDICA BAJO MEDIAS ASEPTICAS. SE COLOCA SONDA URINARIA RIZVI BAJANDO A GRAVEDAD. SE ADMISNITRA LASIX DE 40MG IV. SE REALIZA EKG Y ES MOSTRADO A DR KHAN.
[2024-11-22] MEDS ORDERED: IPRATROPIUM BROMIDE 0.5 MG/2.5 ML AMPUL.NEB IH SCH (21:29)
[2024-11-22 22:22] VITALS: BP 156/73; O2SAT 100
[2024-11-22 22:26] LABS: ABG PH 7.416 (7.35-7.45); ABG PO2 262.5 mmHg (80-100); ABG pCO2 58.3 mmHg (35-45); BASE EXCESS 9.7 mmol/l; BICARBONATE 36.6 mmol/l (23-25); SaO2 99.9 %; Tco2 38.4 mmol/l
[2024-11-22 22:27] LABS: allen test SATISFACTORY; mode NON REBREATHING MASK; o2 100 %; puncture site RADIAL RIGHT
[2024-11-22 22:44] LABS: URINE APPEARANCE Clear; URINE BILIRRUBIN Negative (NEGATIVE); URINE BLOOD Trace; URINE COLOR Dark Yellow; URINE GLUCOSE Negative (NEGATIVE); URINE KETONE Trace (NEGATIVE); URINE LEUKOCYTE Negative; URINE NITRATE Negative
[2024-11-22 22:47] LABS: URINE BACTERIA 15.9 uL (0.0-1933); URINE CAST 1.91 uL (0.0-1.40); URINE EPITHELIAL CELLS 10.2 uL (0.0-38.8)
[2024-11-22 22:56] LABS: URINE PROTEIN 300 (NEGATIVE)
[2024-11-22 23:00] VITALS: BP 106/60; O2SAT 99
[2024-11-23] VITALS (24 sets, daily range): BP systolic 81–140; BP diastolic 44–88; O2SAT 99–100
[2024-11-23] MEDS ORDERED: LEVOTHYROXINE SODIUM 200 MCG TABLET PO SCH (06:00)
[2024-11-23 06:44] LABS: INR 1.13; PARTIAL THROMBOPLASTIN TIME 25.6 SECONDS (22.0-34.0); PROTHROMBIN TIME 12.2 SECONDS (9.0-11.5)
[2024-11-23] MEDS ORDERED: NITROGLYCERIN IN 5 % DEXTROSE 250 ML IV SCH (07:00)
[2024-11-23 08:46] LABS: ABG PH 7.403 (7.35-7.45); BASE EXCESS 14.4 mmol/l; SaO2 99.5 %; Tco2 45.2 mmol/l
[2024-11-23] MEDS ORDERED: ATORVASTATIN CALCIUM 40 MG TABLET PO SCH (09:00)
[2024-11-23] MEDS ORDERED: LevETIRAcetam 500 MG TAB. PO SCH (09:00)
[2024-11-23] MEDS ORDERED: FUROsemide 20 MG/2 ML VIAL IV SCH (09:00)
[2024-11-23] MEDS ORDERED: CALCITRIOL 0.5 MCG CAPSULE PO SCH ×2 (09:00→17:00)
[2024-11-23] MEDS ORDERED: AMINO ACIDS/PROTEIN HYDROLYS 30 ML BLIST.PACK PO SCH (09:00)
[2024-11-23] MEDS ORDERED: PREDNISONE 10 MG TABLET PO SCH (09:00)
[2024-11-23] MEDS ORDERED: BUSPIRONE HCL 5 MG TABLET PO SCH (09:00)
[2024-11-23] MEDS ORDERED: ENOXAPARIN SODIUM 40 MG/0.4 ML SYRINGE SUBCUTANEO SCH (09:00)
[2024-11-23 10:03] LABS: ABG pCO2 70.6 mmHg (35-45); allen test SATISFACTORY; mode BPAP; puncture site RADIAL RIGHT
[2024-11-23 10:08] LABS: o2 60 %
[2024-11-23] MEDS ORDERED: LevETIRAcetam 500 MG/5 ML VIAL IV ONE (11:15)
[2024-11-23] MEDS ORDERED: CEFEPIME HCL 2,000 MG in DEXTROSE 5 % IN WATER 100 ML IV SCH (12:01)
[2024-11-23] MEDS ORDERED: INSULIN LISPRO 1,000 UNIT/10 ML UNITS SUBCUTANEO PRN (12:15)
[2024-11-23] MEDS ORDERED: DEXTROSE 50 % IN WATER 0.5 G/ML DISP.SYRIN IV PRN (12:15)
[2024-11-23] MEDS ORDERED: CLINDAMYCIN PHOSPHATE 150 MG/ML (900mg) IV STA (12:18)
[2024-11-23] MEDS ORDERED: DEXTROSE 50 % IN WATER 0.5 G/ML DISP.SYRIN IV ONE (13:16)
[2024-11-23] MEDS ORDERED: CALCIUM CARBONATE/VITAMIN D3 1 TAB TABLET PO SCH (17:00)
[2024-11-23] MEDS ORDERED: CLINDAMYCIN PHOSPHATE 150 MG/ML (900mg) IV SCH (17:00)
[2024-11-23] MEDS ORDERED: FAMOTIDINE/PF 20 MG/2 ML VIAL IV SCH (21:00)
[2024-11-23] MEDS ORDERED: FAMOTIDINE/PF 20 MG/2 ML VIAL ONE (21:10)
[2024-11-24] VITALS (16 sets, daily range): BP systolic 99–141; BP diastolic 50–87; O2SAT 100
[2024-11-24] MEDS ORDERED: IPRATROPIUM BROMIDE 0.5 MG/2.5 ML AMPUL.NEB IH ONE (00:39)
[2024-11-24] MEDS ORDERED: DEXTROSE 50 % IN WATER 0.5 G/ML DISP.SYRIN IV ONE ×2 (01:28→06:29)
[2024-11-24 08:21] LABS: ABG PH 7.466 (7.35-7.45)
[2024-11-24 08:22] LABS: ABG pCO2 69.7 mmHg (35-45); BASE EXCESS 20.8 mmol/l; BICARBONATE 49.2 mmol/l (23-25); SaO2 98.9 %; Tco2 21.3 mmol/l; allen test SATISFACTORY; mode BPAP; o2 50 %; puncture site RADIAL RIGHT
[2024-11-24 10:57] LABS: ABG PH 7.467 (7.35-7.45); ABG PO2 78.4 mmHg (80-100); ABG pCO2 69.6 mmHg (35-45); BASE EXCESS 20.8 mmol/l; BICARBONATE 49.2 mmol/l (23-25); SaO2 96.9 %; Tco2 51.3 mmol/l; allen test SATISFACTORY; mode VENTURY MASK; o2 40 %; puncture site RADIAL RIGHT
[2024-11-24] MEDS ORDERED: TRIAMCINOLONE ACETONIDE 5 GM TUBE TOP SCH (17:00)
[2024-11-25] VITALS (9 sets, daily range): BP systolic 69–162; BP diastolic 49–81; O2SAT 91–100
[2024-11-25] MEDS ORDERED: DIPHENHYDRAMINE HCL 50 MG/ML VIAL 1ML IV ONE (07:00)
[2024-11-25 07:51] LABS: ALBUMIN 2.1 gm/dL (3.4-5.0); BILIRUBIN TOTAL 1.2 mg/dL (0.3-1.2); CALCIUM 6.7 mg/dL (8.5-10.1); CREATININE SERUM 0.46 mg/dL (0.55-1.02); GFR 132.43; TOTAL PROTEIN 5.1 gm/dL (6.4-8.2)
[2024-11-25 07:53] LABS: HEMATOCRIT 35.2 % (36.0-45.00); HEMOGLOBIN 11.6 g/dL (12.0-15.00); MEAN CELL VOLUME 88.9 fL (80.00-100.00); MEAN CORPUSCULAR HEMOGLOBIN 29.4 pg (27.00-32.0); RED BLOOD COUNT 3.96 M/uL (4.00-6.00); RED CELL DISTRIBUTION WIDTH 16.7 % (11.5-14.5)
[2024-11-25 07:58] LABS: POTASSIUM 2.44 mEq/L (3.5-5.1)
[2024-11-25 07:59] LABS: C-REACTIVE PROTEIN 14.9 MG/DL (0.00-0.29)
[2024-11-25 08:01] LABS: PLATELET COUNT 101 K/uL (150-450)
[2024-11-25 08:21] LABS: ERYTHROCYTE SEDIMENTATION RATE 55 mm/hr
[2024-11-25] MEDS ORDERED: CHOLECALCIFEROL (VITAMIN D3) 5,000 UNITS TABLET PO SCH (09:00)
[2024-11-25] MEDS ORDERED: POTASSIUM CHLORIDE 20MEQ/100ML H2O PB IV ONE (09:45)
[2024-11-25] MEDS ORDERED: CLOTRIMAZOLE 10 MG TROCHE MM SCH (13:00)
[2024-11-26] VITALS (8 sets, daily range): BP systolic 75–102; BP diastolic 50–82; O2SAT 98–100
[2024-11-26 07:46] LABS: HEMATOCRIT 34.1 % (36.0-45.00); HEMOGLOBIN 11.3 g/dL (12.0-15.00); MEAN CELL VOLUME 88.1 fL (80.00-100.00); MEAN CORPUSCULAR HEMOGLOBIN 29.2 pg (27.00-32.0); MEAN CORPUSCULAR HGB CONC 33.1 g/dl (32.0-36.0); RED BLOOD COUNT 3.86 M/uL (4.00-6.00); RED CELL DISTRIBUTION WIDTH 17.2 % (11.5-14.5)
[2024-11-26 07:57] LABS: PLATELET COUNT 105 K/uL (150-450)
[2024-11-26 08:25] LABS: CALCIUM 7.1 mg/dL (8.5-10.1); CREATININE SERUM 0.54 mg/dL (0.55-1.02); GFR 110.06; MAGNESIUM 1.5 mg/dL (1.8-2.4); POTASSIUM 3.35 mEq/L (3.5-5.1)
[2024-11-26 08:36] LABS: MANUAL PLATELET COUNT 168
[2024-11-26] MEDS ORDERED: MAGNESIUM SULFATE IN WATER 50 ML IV NR (10:00)
[2024-11-26] MEDS ORDERED: LORazepam 2 MG/ML VIAL IV PUSH STA (10:27)
[2024-11-26] MEDS ORDERED: LevETIRAcetam 500 MG TAB. PO STA (10:28)
[2024-11-26] MEDS ORDERED: LevETIRAcetam 500 MG/5 ML VIAL IV SCH (10:38)
[2024-11-26] MEDS ORDERED: POTASSIUM CHLORIDE 20MEQ/100ML H2O PB IV ONE (12:00)
[2024-11-26] MEDS ORDERED: METHYLPREDNISOLONE SOD SUCC 40 MG VIAL IV STA (16:01)
[2024-11-26] MEDS ORDERED: LevETIRAcetam 500 MG TAB. PO SCH (21:00)
[2024-11-26] MEDS ORDERED: LevETIRAcetam 5 MG/1 ML REDILUIDO IV SCH (21:00)
[2024-11-27] VITALS (9 sets, daily range): BP systolic 92–137; BP diastolic 57–78; O2SAT 96–100
[2024-11-27] MEDS ORDERED: METHYLPREDNISOLONE SOD SUCC 40 MG VIAL IV SCH (05:00)
[2024-11-27] MEDS ORDERED: POTASSIUM CHLORIDE IN WATER 100 ML IV NR (10:00)
[2024-11-27] MEDS ORDERED: MAGNESIUM SULFATE IN WATER 4GM/50ML PIGGYBAG IV NR (10:00)
[2024-11-27] MEDS ORDERED: MAGNESIUM SULFATE IN WATER 4 GM/100 ML PIGGYBACK IV NR (10:15)
[2024-11-27] MEDS ORDERED: DIPHENHYDRAMINE HCL 50 MG/ML VIAL 1ML ONE (16:07)
[2024-11-27] MEDS ORDERED: DIPHENHYDRAMINE HCL 50 MG/ML VIAL 1ML IV PRN (16:15)
[2024-11-27] MEDS ORDERED: SILVER SULFADIAZINE 50 GM,NYSTATIN 30 GM,ZINC OXIDE 30 GM TOP SCH (19:00)
[2024-11-28] VITALS (7 sets, daily range): BP systolic 105–116; BP diastolic 65–75; O2SAT 91–100
[2024-11-28] MEDS ORDERED: IPRATROPIUM BROMIDE 0.5 MG/2.5 ML AMPUL.NEB IH SCH
[2024-11-28] MEDS ORDERED: BUSPIRONE HCL 15 MG TABLET PO SCH (17:00)
[2024-11-29] VITALS (8 sets, daily range): BP systolic 110–152; BP diastolic 65–72; O2SAT 90–100
[2024-11-29] MEDS ORDERED: CEFEPIME HCL 2,000 MG VIAL ONE (07:47)
[2024-11-29] MEDS ORDERED: DIATRIZOATE MEGLUMINE, SODIUM 30 ML BOTTLE PO STA (08:40)
[2024-11-30] VITALS: O2SAT 80
[2024-11-30 01:55] VITALS: BP 129/71; O2SAT 99
[2024-11-30 05:14] VITALS: O2SAT 90
[2024-11-30 10:13] VITALS: BP 127/79; O2SAT 99
[2024-11-30] MEDS ORDERED: DEXTROSE 50 % IN WATER 0.5 G/ML VIAL IV PRN (14:15)
[2024-11-30] MEDS ORDERED: AMOX1TAB5 PO (14:36)
[2024-11-30] MEDS ORDERED: CALCIUM 500-VI1 EAC6 PO (14:36)
[2024-11-30] MEDS ORDERED: KEPPRA750 MG PO (14:36)
[2024-11-30] MEDS ORDERED: MEDROLPACK PO (14:36)
[2024-11-30] MEDS ORDERED: INTESTINEX680 M2 PO (14:36)
[2024-11-30] MEDS ORDERED: LEVOTHYROXINE200 MCG PO (14:36)
[2024-11-30] MEDS ORDERED: BUSPIRONE HCL15 MG PO (14:36)
[2024-11-30 17:26] VITALS: BP 128/73; O2SAT 96
== END 2024-11-30 17:50 | disposition home or self-care (01) | DRG 291 ==
LOC: ER 19:37 → ICU-2 21:39 → ICU 11-26 22:47 → ICU-2 11-26 22:52 → ICU 11-27 03:06 → MEDI 11-27 18:24
PROVIDERS: General Practice; Internal Medicine; Internal Medicine Geriatric Medicine; ADMIT Internal Medicine; ATTEND Internal Medicine
PROC: B246ZZZ Ultrasonography of Right and Left Heart (ICD-10-PCS; principal; 2024-11-22)
PROC: 5A09457 Assistance with Respiratory Ventilation, 24-96 Consecutive Hours, Continuous Positive Airway Pressure (ICD-10-PCS; 2024-11-22)
PROC: 3E0F7GC Introduction of Other Therapeutic Substance into Respiratory Tract, Via Natural or Artificial Opening (ICD-10-PCS; 2024-11-23)
PROC: 02HV33Z Insertion of Infusion Device into Superior Vena Cava, Percutaneous Approach (ICD-10-PCS; 2024-11-27)
PROC: 4A12X4Z Monitoring of Cardiac Electrical Activity, External Approach (ICD-10-PCS; 2024-11-27)
DX: I11.0 Hypertensive heart disease with heart failure (principal); J96.01 Acute respiratory failure with hypoxia; J44.1 Chronic obstructive pulmonary disease with (acute) exacerbation; I50.9 Heart failure, unspecified; E83.51 Hypocalcemia; L89.619 Pressure ulcer of right heel, unspecified stage; L89.159 Pressure ulcer of sacral region, unspecified stage; Z79.4 Long term (current) use of insulin; E03.8 Other specified hypothyroidism; E83.42 Hypomagnesemia; L08.89 Other specified local infections of the skin and subcutaneous tissue; E87.6 Hypokalemia; E78.49 Other hyperlipidemia; F43.22 Adjustment disorder with anxiety; E11.622 Type 2 diabetes mellitus with other skin ulcer

== ENCOUNTER 2025-01-10 18:39 | Inpatient (IN) | payer OTHER ==
[~2025-01-10] VITALS: Ht 152.4 cm; Wt 63.5 kg
[~2025-01-10 18:39] MED LIST changes: +BUSPIRONE HCL15 MG PO; +MEDROLPACK PO
[2025-01-10] MEDS ORDERED: CEFTRIAXONE SODIUM 2,000 MG VIAL IV ONE (19:30)
[2025-01-10] MEDS ORDERED: CEFTRIAXONE SODIUM 2,000 MG VIAL ONE (20:02)
[2025-01-10 21:04] LABS: BASO % 0.4 % (0.1-1.2); EOS # 0.08 (0.04-0.54); EOS % 0.4 % (0.7-7.0); HEMATOCRIT 33.1 % (34.1-44.9); HEMOGLOBIN 10.6 g/dL (11.2-15.7); LYMPH # 1.21 (1.18-3.74); LYMPH % 6.7 % (19.3-53.1); MEAN CORPUSCULAR HEMOGLOBIN 28.7 pg (25.6-32.2); MONO # 0.79 (0.24-0.82); MONO % 4.4 % (4.7-12.5); NEUT # 15.65 (1.56-6.13); NEUT % 86.8 % (34.0-71.1); PLATELET COUNT 371 K/uL (163-369); RED BLOOD COUNT 3.69 M/uL (3.93-5.22)
[2025-01-10 21:22] LABS: INR 1.12; PARTIAL THROMBOPLASTIN TIME 30.5 SECONDS (22.0-34.0); PROTHROMBIN TIME 12.1 SECONDS (9.0-11.5)
[2025-01-10 21:33] LABS: ERYTHROCYTE SEDIMENTATION RATE > 130 mm/hr (0-30)
[2025-01-10 21:39] LABS: ALBUMIN 2.3 gm/dL (3.4-5.0); BILIRUBIN TOTAL 0.65 mg/dL (0.3-1.2); CALCIUM 9.5 mg/dL (8.5-10.1); CREATININE SERUM 0.68 mg/dL (0.55-1.02); GFR 84.12; GLOBULINA 4.8 G/DL (2.4-3.5); POTASSIUM 3.56 mEq/L (3.5-5.1); TOTAL PROTEIN 7.1 gm/dL (6.4-8.2)
[2025-01-10 21:40] LABS: C-REACTIVE PROTEIN 21.5 MG/DL (0.00-0.29)
[2025-01-10] MEDS ORDERED: FUROsemide 20 MG/2 ML VIAL IV SCH (23:08)
[2025-01-10] MEDS ORDERED: MEROPENEM 500 MG/VIAL VIAL IV SCH (23:10)
[2025-01-10] MEDS ORDERED: VANCOMYCIN HCL 1,000 MG VIAL IV SCH (23:10)
[2025-01-10] MEDS ORDERED: ACETAMINOPHEN 500 MG GEL..CAP PO PRN (23:15)
[2025-01-10] MEDS ORDERED: 0.9 % SODIUM CHLORIDE 1,000 ML IV SCH (23:15)
[2025-01-11] VITALS: BP 92/50; O2SAT 100
[2025-01-11] MEDS ORDERED: IPRATROPIUM BROMIDE 0.5 MG/2.5 ML AMPUL.NEB IH SCH (01:00)
[2025-01-11] MEDS ORDERED: VANCOMYCIN HCL 1,000 MG VIAL ONE (04:09)
[2025-01-11] MEDS ORDERED: LevETIRAcetam 500 MG TAB. PO SCH ×2 (05:00→17:00)
[2025-01-11] MEDS ORDERED: LEVOTHYROXINE SODIUM 200 MCG TABLET PO SCH (06:00)
[2025-01-11 07:01] LABS: URINE CAST 14.04 uL (0.0-1.40); URINE EPITHELIAL CELLS 112.1 uL (0.0-38.8)
[2025-01-11 07:06] LABS: URINE BILIRRUBIN SMALL (NEGATIVE); URINE BLOOD MODERATE; URINE GLUCOSE NEGATIVE (NEGATIVE); URINE KETONE TRACE (NEGATIVE); URINE LEUKOCYTE MODERATE; URINE NITRATE POSITIVE; URINE PROTEIN 30 (NEGATIVE)
[2025-01-11 07:07] LABS: URINE APPEARANCE TURBID; URINE COLOR YELLOW
[2025-01-11 07:11] VITALS: BP 112/84; O2SAT 95
[2025-01-11 07:34] LABS: URINE BACTERIA > 9821.5 uL (0.0-1933); URINE RBC > 10558.9 uL (0.0-20.8); URINE WBC > 5548.3 uL (0.0-23.2)
[2025-01-11 07:36] LABS: URINE YEAST MANY /hpf
[2025-01-11 07:48] VITALS: BP 88/51; O2SAT 97
[2025-01-11] MEDS ORDERED: CALCITRIOL 0.5 MCG CAPSULE PO SCH (09:00)
[2025-01-11] MEDS ORDERED: METOPROLOL SUCCINATE 25 MG TAB.SR.24H PO SCH (09:00)
[2025-01-11] MEDS ORDERED: ASPIRIN 81 MG TAB.CHEW PO SCH (09:00)
[2025-01-11] MEDS ORDERED: BUSPIRONE HCL 15 MG TABLET PO SCH ×2 (09:00)
[2025-01-11] MEDS ORDERED: FAMOTIDINE/PF 20 MG in 0.9 % SODIUM CHLORIDE 8 ML IV PUSH SCH (09:00)
[2025-01-11] MEDS ORDERED: ATORVASTATIN CALCIUM 40 MG TABLET PO SCH (09:00)
[2025-01-11] MEDS ORDERED: GABAPENTIN 100 MG CAPSULE PO SCH (09:00)
[2025-01-11] MEDS ORDERED: ENOXAPARIN SODIUM 40 MG/0.4 ML SYRINGE SUBCUTANEO SCH (09:00)
[2025-01-11] MEDS ORDERED: FLUOXETINE HCL 20 MG CAPSULE PO SCH (09:00)
[2025-01-11] MEDS ORDERED: MORPHINE SULFATE 4 MG/ML CARTRIDGE IV PRN (15:00)
[2025-01-11 16:37] VITALS: BP 93/48; O2SAT 100
[2025-01-11] MEDS ORDERED: LACTOBACILLUS ACIDOPHILUS 1 CAP CAP PO SCH (17:00)
[2025-01-12 02:20] VITALS: BP 117/74; O2SAT 90
[2025-01-12 08:33] VITALS: BP 90/61; O2SAT 91
[2025-01-12] MEDS ORDERED: CHLORHEXIDINE GLUCONATE 120 ML BOTTLE TOP SCH (09:00)
[2025-01-12] MEDS ORDERED: FLUCONAZOLE IN NACL,ISO-OSM 200 MG/100 ML PIGGYBAG IV STA (12:29)
[2025-01-12] MEDS ORDERED: AMPICILLIN SODIUM 2,000 MG VIAL IV SCH (14:18)
[2025-01-12 15:00] LABS: URINE APPEARANCE Turbid; URINE BILIRRUBIN Negative (NEGATIVE); URINE BLOOD Large; URINE COLOR Yellow; URINE GLUCOSE Negative (NEGATIVE); URINE KETONE Trace (NEGATIVE); URINE LEUKOCYTE Large; URINE NITRATE Negative; URINE PROTEIN 30 (NEGATIVE); URINE UROBILINOGEN 0.2 E.U./dl
[2025-01-12 15:03] LABS: URINE BACTERIA 2352.4 uL (0.0-1933); URINE CAST 14.31 uL (0.0-1.40); URINE EPITHELIAL CELLS 59.2 uL (0.0-38.8); URINE RBC 1906.5 uL (0.0-20.8)
[2025-01-12 15:20] LABS: URINE WBC > 5548.3 uL (0.0-23.2)
[2025-01-12 15:21] LABS: URINE CRYSTALS NEGATIVE /HPF
[2025-01-12 15:22] LABS: URINE MUCUS HEAVY; URINE YEAST MODERATE /hpf
[2025-01-12 16:50] LABS: CALCIUM 9.1 mg/dL (8.5-10.1); CREATININE SERUM 0.63 mg/dL (0.55-1.02); GFR 91.88; POTASSIUM 3.43 mEq/L (3.5-5.1)
[2025-01-12 17:56] VITALS: BP 90/50; O2SAT 97
[2025-01-13 02:08] VITALS: BP 110/74; O2SAT 95
[2025-01-13 08:40] LABS: BASO % 0.2 % (0.1-1.2); EOS # 0.23 (0.04-0.54); HEMATOCRIT 29.5 % (34.1-44.9); HEMOGLOBIN 9.5 g/dL (11.2-15.7); LYMPH # 0.56 (1.18-3.74); LYMPH % 2.4 % (19.3-53.1); MEAN CORPUSCULAR HEMOGLOBIN 28.7 pg (25.6-32.2); MONO # 0.55 (0.24-0.82); MONO % 2.4 % (4.7-12.5); NEUT # 21.36 (1.56-6.13); PLATELET COUNT 310 K/uL (163-369); RED BLOOD COUNT 3.31 M/uL (3.93-5.22); RED CELL DISTRIBUTION WIDTH 15.4 % (11.6-14.4)
[2025-01-13] MEDS ORDERED: FLUCONAZOLE IN NACL,ISO-OSM 50 ML IV SCH (09:00)
[2025-01-13 09:43] VITALS: BP 94/60; O2SAT 95
[2025-01-13] MEDS ORDERED: FLUCONAZOLE IN NACL,ISO-OSM 2 MG/ML ML IV SCH (12:00)
[2025-01-13] MEDS ORDERED: CEFTAZIDIME/AVIBACTAM 2.5 GM VIAL IV SCH (17:00)
[2025-01-13 17:43] VITALS: BP 100/65
[2025-01-14] MEDS ORDERED: METRONIDAZOLE/SODIUM CHLORIDE 500 MG/100 ML PIGGYBACK IV SCH (01:00)
[2025-01-14] MEDS ORDERED: MORPHINE SULFATE 4 MG/ML CARTRIDGE IV PRN (01:45)
[2025-01-14 02:03] VITALS: BP 103/62; O2SAT 99
[2025-01-14 09:24] VITALS: BP 78/42; O2SAT 95
[2025-01-14 14:53] VITALS: BP 86/68
[2025-01-14] MEDS ORDERED: GABAPENTIN 400 MG CAPSULE PO ONE (18:15)
[2025-01-14 18:29] VITALS: BP 102/64
[2025-01-15 01:13] VITALS: BP 95/63; O2SAT 97
[2025-01-15] MEDS ORDERED: GABAPENTIN 400 MG CAPSULE PO SCH (09:00)
[2025-01-15 09:23] VITALS: BP 115/57; O2SAT 95
[2025-01-15] MEDS ORDERED: SODIUM HYPOCHLORITE 1OZ TOP SCH (10:25)
[2025-01-15] MEDS ORDERED: FLUCONAZOLE IN NACL,ISO-OSM 400 MG/200 ML PIGGYBAG IV NR (13:00)
[2025-01-15] MEDS ORDERED: MEROPENEM 500 MG/VIAL VIAL IV SCH (18:00)
[2025-01-15 18:43] VITALS: BP 118/84
[2025-01-15] MEDS ORDERED: FAMOtidine 20 MG TABLET PO SCH (21:00)
[2025-01-16 01:36] VITALS: BP 85/49; O2SAT 94
[2025-01-16 02:01] VITALS: BP 93/60
[2025-01-16 03:13] VITALS: BP 109/85
[2025-01-16] MEDS ORDERED: FLUCONAZOLE IN NACL,ISO-OSM 400 MG/200 ML PIGGYBAG IV SCH (09:00)
[2025-01-16 09:26] LABS: BASO % 0.4 % (0.1-1.2); EOS # 0.22 (0.04-0.54); EOS % 1.4 % (0.7-7.0); HEMATOCRIT 27.2 % (34.1-44.9); LYMPH # 1.86 (1.18-3.74); LYMPH % 12.2 % (19.3-53.1); MEAN CORPUSCULAR HEMOGLOBIN 28.9 pg (25.6-32.2); MONO # 0.92 (0.24-0.82); MONO % 6.1 % (4.7-12.5); NEUT # 12.01 (1.56-6.13); NEUT % 79.1 % (34.0-71.1); PLATELET COUNT 249 K/uL (163-369); RED BLOOD COUNT 2.94 M/uL (3.93-5.22); RED CELL DISTRIBUTION WIDTH 15.9 % (11.6-14.4)
[2025-01-16 09:38] VITALS: BP 96/65; O2SAT 95
[2025-01-16 09:39] LABS: HEMOGLOBIN 8.5 g/dL (11.2-15.7)
[2025-01-16 12:34] LABS: CALCIUM 8.4 mg/dL (8.5-10.1); CREATININE SERUM 0.58 mg/dL (0.55-1.02); GFR 101.07; MAGNESIUM 1.8 mg/dL (1.8-2.4); PHOSPHOROUS 3.1 mg/dL (2.5-4.9)
[2025-01-16 13:11] LABS: POTASSIUM 2.95 mEq/L (3.5-5.1)
[2025-01-16] MEDS ORDERED: MORPHINE SULFATE 4 MG/ML CARTRIDGE IV PRN (15:00)
[2025-01-16] MEDS ORDERED: POTASSIUM CHLORIDE IN WATER 40 MEQ/100 ML PIGGYBAG IV SCH (17:00)
[2025-01-16 17:20] VITALS: BP 109/60; O2SAT 94
[2025-01-17 03:02] VITALS: BP 97/61; O2SAT 94
[2025-01-17 07:12] LABS: URINE CAST 10.75 uL (0.0-1.40); URINE EPITHELIAL CELLS 12.8 uL (0.0-38.8); URINE RBC 42.4 uL (0.0-20.8)
[2025-01-17 07:26] LABS: URINE BILIRRUBIN NEGATIVE (NEGATIVE); URINE BLOOD TRACE; URINE GLUCOSE NEGATIVE (NEGATIVE); URINE KETONE NEGATIVE (NEGATIVE); URINE LEUKOCYTE SMALL; URINE NITRATE NEGATIVE; URINE PROTEIN 30 (NEGATIVE); URINE UROBILINOGEN 0.2 E.U./dl
[2025-01-17 07:31] LABS: URINE APPEARANCE CLOUDY; URINE COLOR YELLOW
[2025-01-17 08:11] LABS: TYPE CELLS RENAL TUBULAR; URINE CRYSTALS FEW /HPF
[2025-01-17 08:16] VITALS: BP 96/62
[2025-01-17 17:15] VITALS: BP 101/58; O2SAT 98
[2025-01-18 02:29] VITALS: BP 81/54; O2SAT 95
[2025-01-18 06:51] LABS: CALCIUM 8.3 mg/dL (8.5-10.1); CREATININE SERUM 0.46 mg/dL (0.55-1.02); GFR 132.07; MAGNESIUM 1.7 mg/dL (1.8-2.4); PHOSPHOROUS 2.6 mg/dL (2.5-4.9); POTASSIUM 3.01 mEq/L (3.5-5.1)
[2025-01-18] MEDS ORDERED: POTASSIUM CHLORIDE IN WATER 40 MEQ/100 ML PIGGYBAG IV ONE (08:43)
[2025-01-18 08:47] VITALS: BP 103/66
[2025-01-18] MEDS ORDERED: POTASSIUM CHLORIDE IN WATER 40 MEQ/100 ML PIGGYBAG IV SCH (09:21)
[2025-01-18] MEDS ORDERED: POTASSIUM PHOS,M-BASIC-D-BASIC 18 MM in 0.9 % SODIUM CHLORIDE 500 ML IV NR (09:30)
[2025-01-18] MEDS ORDERED: MAGNESIUM SULFATE IN WATER 50 ML IV SCH (12:00)
[2025-01-18 15:34] LABS: BASO % 0.5 % (0.1-1.2); EOS # 0.19 (0.04-0.54); EOS % 1.4 % (0.7-7.0); MEAN CORPUSCULAR HEMOGLOBIN 29.2 pg (25.6-32.2); MONO # 0.71 (0.24-0.82); MONO % 5.1 % (4.7-12.5); NEUT # 10.97 (1.56-6.13); NEUT % 79.1 % (34.0-71.1); PLATELET COUNT 232 K/uL (163-369); RED BLOOD COUNT 2.71 M/uL (3.93-5.22); RED CELL DISTRIBUTION WIDTH 16.2 % (11.6-14.4)
[2025-01-18 15:49] LABS: HEMATOCRIT 25.1 % (34.1-44.9)
[2025-01-18 15:50] LABS: HEMOGLOBIN 7.9 g/dL (11.2-15.7)
[2025-01-18 17:34] VITALS: BP 126/66; O2SAT 98
[2025-01-19 01:06] VITALS: BP 110/68; O2SAT 98
[2025-01-19] MEDS ORDERED: FUROsemide 20 MG TABLET PO SCH (09:00)
[2025-01-19 09:53] VITALS: BP 105/70
[2025-01-19] MEDS ORDERED: AMPHOTERICIN B IV SCH (13:00)
[2025-01-19 15:07] LABS: BASO % 0.7 % (0.1-1.2); EOS # 0.33 (0.04-0.54); EOS % 2.2 % (0.7-7.0); HEMATOCRIT 33.6 % (34.1-44.9); HEMOGLOBIN 10.6 g/dL (11.2-15.7); LYMPH # 1.94 (1.18-3.74); LYMPH % 12.8 % (19.3-53.1); MEAN CORPUSCULAR HEMOGLOBIN 27.6 pg (25.6-32.2); MONO % 4.6 % (4.7-12.5); NEUT # 11.91 (1.56-6.13); NEUT % 78.7 % (34.0-71.1); PLATELET COUNT 211 K/uL (163-369); RED BLOOD COUNT 3.84 M/uL (3.93-5.22)
[2025-01-19 15:12] LABS: RED CELL DISTRIBUTION WIDTH 21.2 % (11.6-14.4)
[2025-01-19] MEDS ORDERED: VANCOMYCIN HCL 1,000 MG VIAL IV SCH (17:00)
[2025-01-19 18:46] VITALS: BP 90/52; O2SAT 96
[2025-01-19 19:05] LABS: ABG PH 7.475 (7.35-7.45); ABG PO2 64.5 mmHg (80-100); ABG pCO2 48.8 mmHg (35-45); BASE EXCESS 9.9 mmol/l; BICARBONATE 35.1 mmol/l (23-25); SaO2 94.3 %; Tco2 36.6 mmol/l; o2 21 %
[2025-01-19 19:06] LABS: allen test SATISFACTORY; mode ROOM AIR; puncture site RADIAL RIGHT
[2025-01-19] MEDS ORDERED: ACETAMINOPHEN 500 MG GEL..CAP PO ONE ×2 (21:10→21:30)
[2025-01-19] MEDS ORDERED: 0.9 % SODIUM CHLORIDE 1,000 ML IV SCH (21:45)
[2025-01-20 01:23] VITALS: BP 85/54; O2SAT 96
[2025-01-20 02:30] VITALS: BP 88/54
[2025-01-20 05:30] VITALS: BP 88/56
[2025-01-20 07:48] LABS: BASO % 0.7 % (0.1-1.2); EOS % 2.1 % (0.7-7.0); HEMATOCRIT 31.4 % (34.1-44.9); HEMOGLOBIN 9.9 g/dL (11.2-15.7); LYMPH # 1.38 (1.18-3.74); LYMPH % 9.9 % (19.3-53.1); MEAN CORPUSCULAR HEMOGLOBIN 27.3 pg (25.6-32.2); MONO # 0.55 (0.24-0.82); MONO % 3.9 % (4.7-12.5); NEUT # 11.53 (1.56-6.13); NEUT % 82.5 % (34.0-71.1); PLATELET COUNT 195 K/uL (163-369); RED BLOOD COUNT 3.62 M/uL (3.93-5.22)
[2025-01-20 08:08] LABS: ALBUMIN 1.5 gm/dL (3.4-5.0); BILIRUBIN TOTAL 0.47 mg/dL (0.3-1.2); CALCIUM 7.9 mg/dL (8.5-10.1); CREATININE SERUM 0.45 mg/dL (0.55-1.02); GFR 135.47; GLOBULINA 3.1 G/DL (2.4-3.5); POTASSIUM 4.27 mEq/L (3.5-5.1); TOTAL PROTEIN 4.6 gm/dL (6.4-8.2)
[2025-01-20 08:52] LABS: PH,URINE 5.5 (5.0-8.0); URINE APPEARANCE Cloudy; URINE BILIRRUBIN Negative (NEGATIVE); URINE BLOOD Negative; URINE COLOR Dark Yellow; URINE GLUCOSE Negative (NEGATIVE); URINE KETONE Trace (NEGATIVE); URINE LEUKOCYTE Small; URINE NITRATE Negative
[2025-01-20 08:57] LABS: URINE BACTERIA 292.5 uL (0.0-1933); URINE CAST 11.63 uL (0.0-1.40); URINE EPITHELIAL CELLS 8.3 uL (0.0-38.8); URINE RBC 13.2 uL (0.0-20.8); URINE WBC 559.9 uL (0.0-23.2)
[2025-01-20 09:19] LABS: URINE PROTEIN 100 (NEGATIVE)
[2025-01-20 09:21] LABS: URINE CRYSTALS MODERATE /HPF
[2025-01-20 10:15] VITALS: BP 94/58; O2SAT 98
[2025-01-20] MEDS ORDERED: AMPHOTERICIN B IV SCH (13:00)
[2025-01-20 17:03] VITALS: BP 129/72; O2SAT 90
[2025-01-20] MEDS ORDERED: BUSPIRONE HCL 15 MG TABLET PO SCH (21:00)
[2025-01-21 01:24] VITALS: BP 85/51; O2SAT 95
[2025-01-21 10:01] VITALS: BP 97/67; O2SAT 98
[2025-01-21 18:24] VITALS: BP 104/60; O2SAT 99
[2025-01-22 00:29] VITALS: BP 89/60; O2SAT 96
[2025-01-22 08:36] VITALS: BP 98/50
[2025-01-22] MEDS ORDERED: SUCRALFATE 1 G TABLET PO NR (10:00)
[2025-01-22] MEDS ORDERED: SUCRALFATE 1 G TABLET PO SCH (13:00)
[2025-01-22] MEDS ORDERED: LACTOBACILLUS ACIDOPHILUS 1 CAP CAP PO SCH (13:00)
[2025-01-22] MEDS ORDERED: POTASSIUM CHLORIDE IN WATER 40 MEQ/100 ML PIGGYBAG IV ONE (13:04)
[2025-01-22 18:29] VITALS: BP 87/57
[2025-01-22] MEDS ORDERED: ACETAMINOPHEN 500 MG GEL..CAP PO ONE (23:58)
[2025-01-23] MEDS ORDERED: ACETAMINOPHEN 500 MG GEL..CAP PO ONE (00:01)
[2025-01-23 00:47] VITALS: BP 103/64; O2SAT 98
[2025-01-23 08:43] VITALS: BP 90/50
[2025-01-23] MEDS ORDERED: MEROPENEM 500 MG/VIAL VIAL IV NR (09:00)
[2025-01-23] MEDS ORDERED: MEROPENEM 500 MG/VIAL VIAL IV SCH (14:00)
[2025-01-23 17:38] VITALS: BP 117/65
[2025-01-23 17:54] LABS: PH,URINE 5.5 (5.0-8.0); URINE APPEARANCE Cloudy; URINE BILIRRUBIN Negative (NEGATIVE); URINE BLOOD Large; URINE COLOR Yellow; URINE GLUCOSE Negative (NEGATIVE); URINE KETONE Negative (NEGATIVE); URINE LEUKOCYTE Large; URINE NITRATE Negative; URINE PROTEIN Trace (NEGATIVE); URINE UROBILINOGEN 0.2 E.U./dl
[2025-01-23 17:58] LABS: URINE EPITHELIAL CELLS 7.4 uL (0.0-38.8); URINE RBC 1292.4 uL (0.0-20.8); URINE WBC 1091.3 uL (0.0-23.2)
[2025-01-23 18:08] LABS: URINE CAST > 21.83 uL (0.0-1.40)
[2025-01-23 18:31] LABS: URINE MUCUS MODERATE; URINE YEAST MANY /hpf
[2025-01-23 18:32] LABS: URINE CRYSTALS MODERATE /HPF
[2025-01-24 00:29] VITALS: BP 100/65; O2SAT 98
[2025-01-24 08:30] VITALS: BP 90/55; O2SAT 100
[2025-01-24] MEDS ORDERED: EMOLLIENTS 6 OZ BOTTLE TOP SCH (10:29)
[2025-01-24 11:51] LABS: BASO % 0.6 % (0.1-1.2); EOS # 0.26 (0.04-0.54); EOS % 3.2 % (0.7-7.0); HEMATOCRIT 29.4 % (34.1-44.9); LYMPH # 0.91 (1.18-3.74); MEAN CORPUSCULAR HEMOGLOBIN 27.8 pg (25.6-32.2); MONO # 0.56 (0.24-0.82); MONO % 6.8 % (4.7-12.5); NEUT # 6.44 (1.56-6.13); NEUT % 78.2 % (34.0-71.1); PLATELET COUNT 222 K/uL (163-369); RED BLOOD COUNT 3.24 M/uL (3.93-5.22); RED CELL DISTRIBUTION WIDTH 18.6 % (11.6-14.4)
[2025-01-24 12:39] LABS: ALBUMIN 1.6 gm/dL (3.4-5.0); BILIRUBIN TOTAL 0.33 mg/dL (0.3-1.2); CALCIUM 9.5 mg/dL (8.5-10.1); CREATININE SERUM 0.4 mg/dL (0.55-1.02); GFR 155.19; GLOBULINA 3.5 G/DL (2.4-3.5); POTASSIUM 4.87 mEq/L (3.5-5.1); TOTAL PROTEIN 5.1 gm/dL (6.4-8.2)
[2025-01-24 17:26] VITALS: BP 143/109
[2025-01-25 01:43] VITALS: BP 116/70
[2025-01-25] MEDS ORDERED: COLLAGENASE CLOSTRIDIUM HIST. 30 GM TUBE TOP SCH (09:00)
[2025-01-25 09:20] VITALS: BP 118/69; O2SAT 98
[2025-01-25 12:41] VITALS: BP 160/83; O2SAT 96
[2025-01-25 17:06] VITALS: BP 122/67; O2SAT 100
[2025-01-26 03:02] VITALS: BP 108/68
[2025-01-26 09:51] VITALS: BP 103/68; O2SAT 97
[2025-01-26] MEDS ORDERED: FLUCONAZOLE 200 MG TABLET PO SCH (12:00)
[2025-01-26 18:41] VITALS: BP 1148/75
[2025-01-26 18:55] VITALS: BP 148/75
[2025-01-27 02:23] VITALS: BP 105/67; O2SAT 97
[2025-01-27] MEDS ORDERED: BUSPIRONE HCL 15 MG TABLET PO SCH (09:00)
[2025-01-27 09:24] VITALS: BP 94/65; O2SAT 98
[2025-01-27 18:40] VITALS: BP 120/80
[2025-01-28 02:48] VITALS: BP 102/67; O2SAT 96
[2025-01-28 10:07] VITALS: BP 91/61
[2025-01-28 17:44] VITALS: BP 133/59
[2025-01-28] MEDS ORDERED: LEVALBUTEROL HCL 1.25 MG/3 ML SOLUTION IH SCH (19:49)
[2025-01-28] MEDS ORDERED: METHYLPREDNISOLONE SOD SUCC 40 MG VIAL IV SCH (19:50)
[2025-01-28] MEDS ORDERED: FUROsemide 20 MG/2 ML VIAL IV SCH (19:51)
[2025-01-29 01:56] VITALS: BP 123/75; O2SAT 95
[2025-01-29 08:47] VITALS: BP 104/60; O2SAT 100
[2025-01-29 17:11] VITALS: BP 105/61
[2025-01-29 21:47] LABS: PH,URINE 5.5 (5.0-8.0); URINE APPEARANCE Clear; URINE BILIRRUBIN Negative (NEGATIVE); URINE BLOOD Negative; URINE COLOR Yellow; URINE GLUCOSE Negative (NEGATIVE); URINE KETONE Negative (NEGATIVE); URINE LEUKOCYTE Trace; URINE NITRATE Negative; URINE PROTEIN Negative (NEGATIVE); URINE UROBILINOGEN 0.2 E.U./dl
[2025-01-29 21:49] LABS: URINE BACTERIA 47.7 uL (0.0-1933); URINE CAST 2.35 uL (0.0-1.40); URINE EPITHELIAL CELLS 1.8 uL (0.0-38.8); URINE RBC 16.4 uL (0.0-20.8)
[2025-01-29 22:22] LABS: URINE CRYSTALS FEW /HPF
[2025-01-30 01:14] VITALS: BP 103/69; O2SAT 97
[2025-01-30 08:25] VITALS: BP 100/60; O2SAT 99
[2025-01-30 13:09] LABS: BASO % 0.3 % (0.1-1.2); EOS # 0.01 (0.04-0.54); EOS % 0.1 % (0.7-7.0); HEMATOCRIT 30.7 % (34.1-44.9); HEMOGLOBIN 9.6 g/dL (11.2-15.7); LYMPH # 0.93 (1.18-3.74); LYMPH % 13.2 % (19.3-53.1); MEAN CORPUSCULAR HEMOGLOBIN 28.2 pg (25.6-32.2); MONO # 0.71 (0.24-0.82); MONO % 10.1 % (4.7-12.5); NEUT # 5.32 (1.56-6.13); NEUT % 75.9 % (34.0-71.1); PLATELET COUNT 306 K/uL (163-369); RED CELL DISTRIBUTION WIDTH 18.7 % (11.6-14.4)
[2025-01-30 13:48] LABS: INR 1.05; PARTIAL THROMBOPLASTIN TIME 25.4 SECONDS (22.0-34.0); PROTHROMBIN TIME 11.4 SECONDS (9.0-11.5)
[2025-01-30 14:06] LABS: BILIRUBIN TOTAL 0.29 mg/dL (0.3-1.2); CALCIUM 8.9 mg/dL (8.5-10.1); CREATININE SERUM 0.51 mg/dL (0.55-1.02); GFR 117.25; GLOBULINA 3.7 G/DL (2.4-3.5); POTASSIUM 4.12 mEq/L (3.5-5.1); TOTAL PROTEIN 5.7 gm/dL (6.4-8.2)
[2025-01-30 17:53] VITALS: BP 94/64; O2SAT 98
[2025-01-31 03:03] VITALS: BP 93/63; O2SAT 98
[2025-01-31 09:22] LABS: ABG PH 7.359 (7.35-7.45); ABG PO2 131.4 mmHg (80-100); BASE EXCESS 12.1 mmol/l; BICARBONATE 41.3 mmol/l (23-25); SaO2 98.9 %; Tco2 43.6 mmol/l
[2025-01-31 09:40] VITALS: BP 90/64; O2SAT 92
[2025-01-31 10:53] LABS: allen test SATISFACTORY; mode NASAL CANNULA; o2 32 %; puncture site RADIAL LEFT
[2025-01-31] MEDS ORDERED: FUROsemide 20 MG TABLET PO SCH (13:00)
[2025-01-31 17:33] VITALS: BP 126/74; O2SAT 100
[2025-02-01 02:32] VITALS: BP 106/64; O2SAT 98
[2025-02-01 09:06] LABS: ABG PH 7.423 (7.35-7.45); BASE EXCESS 16.2 mmol/l; BICARBONATE 44.6 mmol/l (23-25); SaO2 88.3 %; Tco2 46.8 mmol/l
[2025-02-01 09:12] LABS: ABG pCO2 69.9 mmHg (35-45)
[2025-02-01 09:13] LABS: ABG PO2 51.2 mmHg (80-100); allen test SATISFACTORY; mode ROOM AIR; o2 21 %; puncture site RADIAL LEFT
[2025-02-01 09:16] VITALS: BP 110/66
[2025-02-01 18:08] VITALS: BP 123/80; O2SAT 95
[2025-02-01 21:40] LABS: MONONUCLEAR 94.3 %; PLEURAL FLUID WBC 0.207 10E3/uL; POLYMORPHONUCLEAR 5.7 %
[2025-02-01 21:46] LABS: PLEURAL FLUID COLOR YELLOW
[2025-02-01 21:47] LABS: PLEURAL FLUID APPEARANCE CRYSTAL CLEAR
[2025-02-01 22:20] LABS: TP PLEURAL FLUID 1.1 g/dl
[2025-02-02 03:03] VITALS: BP 102/71; O2SAT 91
[2025-02-02 08:27] LABS: URINE APPEARANCE Cloudy; URINE BILIRRUBIN Negative (NEGATIVE); URINE BLOOD Moderate; URINE COLOR Yellow; URINE GLUCOSE Negative (NEGATIVE); URINE KETONE Negative (NEGATIVE); URINE LEUKOCYTE Large; URINE NITRATE Negative; URINE PROTEIN Trace (NEGATIVE); URINE UROBILINOGEN 0.2 E.U./dl
[2025-02-02 08:28] LABS: URINE BACTERIA 484.6 uL (0.0-1933); URINE CAST 4.71 uL (0.0-1.40); URINE EPITHELIAL CELLS 4.2 uL (0.0-38.8); URINE RBC 272.8 uL (0.0-20.8); URINE WBC 1300.8 uL (0.0-23.2)
[2025-02-02 08:48] VITALS: BP 95/63; O2SAT 100
[2025-02-02 08:53] LABS: TYPE CELLS SQUAMOUS; URINE CRYSTALS MODERATE /HPF; URINE MUCUS SCANT; URINE YEAST FEW /hpf
[2025-02-02] MEDS ORDERED: LIPITOR40 M1 PO (14:44)
[2025-02-02] MEDS ORDERED: TOPROL XL25 M1 PO (14:44)
[2025-02-02] MEDS ORDERED: ADULT ASPIRIN81 MG PO (14:44)
[2025-02-02] MEDS ORDERED: BUSPIRONE HCL15 MG PO (14:44)
[2025-02-02] MEDS ORDERED: PROZAC20 MG PO (14:45)
[2025-02-02] MEDS ORDERED: NeuRONTin 400MG CAPS PO (14:45)
[2025-02-02] MEDS ORDERED: FUROSEMIDE20 MG PO (14:47)
[2025-02-02] MEDS ORDERED: KEPPRA500 MG PO (14:47)
[2025-02-02] MEDS ORDERED: LEVOTHYROXINE200 MCG PO (14:48)
[2025-02-02] MEDS ORDERED: CARAFATE1 GM PO (14:49)
[2025-02-02] MEDS ORDERED: CALCITRIOL0.5 MCG PO (14:50)
[2025-02-02] MEDS ORDERED: FLUCONAZOLE100 MG PO (14:59)
[2025-02-02] MEDS ORDERED: DERMACINRX THE135 GM TOP (14:59)
[2025-02-02 17:33] VITALS: BP 100/65; O2SAT 98
[2025-02-03] MEDS ORDERED: PROZAC20 MG PO (17:10)
[2025-02-03] MEDS ORDERED: KEPPRA750 MG PO (17:10)
[2025-02-03] MEDS ORDERED: LEVOTHYROXINE200 MCG PO (17:10)
[2025-02-03] MEDS ORDERED: ST. JOSEPH ASPI81 M2 PO (17:10)
[2025-02-03] MEDS ORDERED: PEPCID AC20 MG PO (17:10)
[2025-02-03] MEDS ORDERED: CALCITRIOL0.5 MCG PO (17:10)
[2025-02-03] MEDS ORDERED: TOPROL XL25 M1 PO (17:10)
[2025-02-03] MEDS ORDERED: BUSPIRONE HCL15 MG PO (17:10)
[2025-02-03] MEDS ORDERED: LASIX20 MG PO (17:10)
[2025-02-03] MEDS ORDERED: GABAPENTIN400 MG PO (17:10)
[2025-02-03] MEDS ORDERED: ATORVASTATIN CA40 MG PO (17:10)
== END 2025-02-02 19:52 | disposition home or self-care (01) | DRG 539 ==
LOC: ER 18:39 → MEDJ 23:11
PROVIDERS: General Practice; Internal Medicine; Internal Medicine Infectious Disease; Radiology Vascular & Interventional Radiology; ADMIT Internal Medicine; ATTEND Internal Medicine
PROC: 3E0F7GC Introduction of Other Therapeutic Substance into Respiratory Tract, Via Natural or Artificial Opening (ICD-10-PCS; 2025-01-11)
PROC: 0JBQ3ZZ Excision of Right Foot Subcutaneous Tissue and Fascia, Percutaneous Approach (ICD-10-PCS; 2025-01-11)
PROC: 02HV33Z Insertion of Infusion Device into Superior Vena Cava, Percutaneous Approach (ICD-10-PCS; 2025-01-12)
PROC: 8E0ZXY6 Isolation (ICD-10-PCS; 2025-01-13)
PROC: 0JBQ3ZZ Excision of Right Foot Subcutaneous Tissue and Fascia, Percutaneous Approach (ICD-10-PCS; 2025-01-17)
PROC: 30233N1 Transfusion of Nonautologous Red Blood Cells into Peripheral Vein, Percutaneous Approach (ICD-10-PCS; 2025-01-19)
PROC: 0JBQ3ZZ Excision of Right Foot Subcutaneous Tissue and Fascia, Percutaneous Approach (ICD-10-PCS; 2025-01-24)
PROC: 0JBQ3ZZ Excision of Right Foot Subcutaneous Tissue and Fascia, Percutaneous Approach (ICD-10-PCS; 2025-01-31)
PROC: 0W9B3ZZ Drainage of Left Pleural Cavity, Percutaneous Approach (ICD-10-PCS; principal; 2025-02-01)
DX: M86.8X7 Other osteomyelitis, ankle and foot (principal); A41.9 Sepsis, unspecified organism; L97.328 Non-pressure chronic ulcer of left ankle with other specified severity; N39.0 Urinary tract infection, site not specified; B95.61 Methicillin susceptible Staphylococcus aureus infection as the cause of diseases classified elsewhere; I11.0 Hypertensive heart disease with heart failure; I50.9 Heart failure, unspecified; L03.011 Cellulitis of right finger; B96.89 Other specified bacterial agents as the cause of diseases classified elsewhere; L08.89 Other specified local infections of the skin and subcutaneous tissue; J44.9 Chronic obstructive pulmonary disease, unspecified; E11.621 Type 2 diabetes mellitus with foot ulcer; Z79.4 Long term (current) use of insulin

== ENCOUNTER 2025-07-04 20:30 | Inpatient (IN) | payer OTHER ==
[~2025-07-04] VITALS: Ht 162.6 cm; Wt 75.3 kg
[~2025-07-04 20:30] MED LIST changes: +ADULT ASPIRIN81 MG PO; +CARAFATE1 GM PO; +DERMACINRX THE135 GM TOP; +FLUCONAZOLE100 MG PO; +FUROSEMIDE20 MG PO; +GABAPENTIN400 MG PO; +KEPPRA500 MG PO; +NeuRONTin 400MG CAPS PO; +PROZAC20 MG PO; +TOPROL XL25 M1 PO
--- NOTE | 2025-07-04 21:37 | NUR ---
2015 SE RECIBE A PACIENTE EN ESTADO INCONSCIENTE EN AMBULANCIA JUNTO A PARAMEDICOS Y FAMILIAR. PARAMEDICOS REFIEREN QUE PACIENTE COMENZO CON DIFICULTAD RESPIRATORIA DESDE ANTES DE LLEGAR A CAROLYN. SE ALBARO S/V, BP 50/30, P 130, SPO2 30%, RR 50. SE COLOCA A PACIENTE EN AREA DE CRITICO Y SE CONECTA A MONITOR CARDIACO Y OXIMETRIA CONTINUA. 2019 DR. TRACEY BANERJEEEN VERBAL PARA INTUBAR A PACIENTE, SE NOTIFICA A ANESTESIA. 2029 DR. TRACEY BANERJEEEN VERBAL DE COMENZAR DRIP LEVOPHED 8MG Y FULL DRIP 0.9NSS, SE EJECUTAN ORDENES BAJO MEDIDAS ASEPTICAS. 2034 HENDERSON DE ANESTESIA INTUBA A PACIENTE CON TUBO 7.5 Y FIJA EN 22CM. WALTON DE TERAPIA COLOCA PARAMETROS DE VENTILADOR VT 400, RR 14, 02 100% Y PEEP 5. 2039 SE REALIZA DXT Y RESULTADO EN GLUCOMETRO FUE DE "LOW", SE ADMINISTRA HIPERTONICA AL 50% YUMIKO ORDEN VERBAL DE DR. WEBB. 2054 DR. TRACEY NGUYEN ORDEN VERBAL DE ADMINISTRAR BICARBONATO 8.4MEQ, SE EJECUTAN ORDENES BAJO MEDIDAS ASEPTICAS. 2104 SE RE EVALUA DXT 60MG/DL, DR. WEBB ORDENA ADMINISTRAR SEGUNDA HIPERTONICA AL 50%. 2106 PERSONAL DE RX REALIZA PLACA DE PECHO EN UNIDAD. 2114 SE MANTIENE A BAJO BAJO OBSERVACION POR CAMBIOS SIGNIFICATIVOS EN CONDICION, NO REFIERE ORDENES NUEVAS AL MOMENTO.
[2025-07-04] MEDS ORDERED: NOREPINEPHRINE BITARTRATE 8 MG in DEXTROSE 5 % IN WATER 250 ML IV SCH (22:30)
[2025-07-04] MEDS ORDERED: 0.9 % SODIUM CHLORIDE 1,000 ML IV SCH (22:30)
[2025-07-04] MEDS ORDERED: PIPERACILLIN/TAZOBACTAM SODIUM 3.375 GM VIAL IV ONE (23:00)
--- NOTE | 2025-07-04 23:00 | NUR ---
SE RECIBE PACIENTE DE TURNO ANTERIOR CON RESPUESTA A ESTIMULOS EN HUNTER CONECTADA A MONITOR CARDIACO Y OXIEMTRIA DE PULSO. PACIENTE INTUBADA CON TUBO 7.5 OROTRAQUELA; CONECTADA A VENTILADOR MECANICO CON LOS SIGUIENTES PARAMETROS: MODO- AC, VT- 400, F02- 100%, RR-16 Y PEEP- 5.0. SE OBSERVAN CANALIZACION EN BRAZO DERECHO CON ANGIO #20 PATENTE,CLIFF DE EDEMA O ERITEMA; RECIBIENDO LEVOPHED 8MG @36ML/HR SE OBSERVAN DEDOS DE MANO DERECHA CON COLORACION VIOLACEA Y FRIOS AL TACTO. SE OBSERVA CANALIZACION EN BRAZO ELMER CON ANGIO #20 PATENTE,CLIFF DE EDEMA O ERITEMA. ABDOMEN DEPRESIBLE AL TACTO. RIZVI A GRAVEDAD SE OBSERVA EGRESO URINARIO COLOR ALONDRA Y CON SEDIMENTACION. SE OBSERVAN EXTREMIDADES INFERIORES CON VENDAJE LIMPIO Y SECO, TALONERAS PREVENTIVAS COLOCADAS.
[2025-07-04 23:14] LABS: BASO % 0.0 % (0.1-1.2); EOS # 0.12 (0.04-0.54); EOS % 0.3 % (0.7-7.0); LYMPH # 1.75 (1.18-3.74); LYMPH % 4.1 % (19.3-53.1); MEAN PLATELET VOLUME 9.70 fl (9.4-12.4); MONO # 0.95 (0.24-0.82); MONO % 2.2 % (4.7-12.5); NEUT # 37.85 (1.56-6.13); NEUT % 89.7 % (34.0-71.1); RED CELL DISTRIBUTION WIDTH 13.2 % (11.6-14.4)
[2025-07-04 23:36] LABS: INR 1.22
[2025-07-04 23:44] LABS: BAND MAN 23.0 %; LYMPHOCYTE MAN 2.0 %; MONOCYTE MAN 5.0 %; NEUTROPHILS MAN 70.0 %
[2025-07-04 23:47] LABS: ALT/SGPT 29.0 U/L (12-78); AST/SGOT 63.0 U/L (15-37); BILIRUBIN TOTAL 1.04 mg/dL (0.3-1.2); GLOBULINA 4.9 G/DL (2.4-3.5); GLUCOSE FASTING 89.0 mg/dL (65-100); LDH 383.0 U/L (84-246)
[2025-07-04 23:57] LABS: OSMOLALITY SERUM 289.0 MOSM/KG (275-295)
[2025-07-04 23:58] LABS: BUN CREA RATIO 16.0 (7.0-25.0); CREATININE SERUM 5.24 mg/dL (0.55-1.02); GFR 7.97; PHOSPHOKINASE CREATININE 984.0 U/L (26-192)
[2025-07-05] VITALS (8 sets, daily range): BP systolic 113–161; BP diastolic 46–72; O2SAT 98–100
[2025-07-05] MEDS ORDERED: 0.9 % SODIUM CHLORIDE 1,000 ML IV ONE ×3 (00:15→10:15)
[2025-07-05 01:43] LABS: BASO % 0.1 % (0.1-1.2); EOS # 0.00 (0.04-0.54); EOS % 0.0 % (0.7-7.0); LYMPH # 1.95 (1.18-3.74); LYMPH % 4.2 % (19.3-53.1); MEAN PLATELET VOLUME 9.80 fl (9.4-12.4); MONO # 0.87 (0.24-0.82); MONO % 1.9 % (4.7-12.5); NEUT # 42.42 (1.56-6.13); NEUT % 90.6 % (34.0-71.1); RED CELL DISTRIBUTION WIDTH 13.2 % (11.6-14.4)
[2025-07-05 02:40] LABS: ERYTHROCYTE SEDIMENTATION RATE 78 mm/hr (0-30)
[2025-07-05 03:06] LABS: URINE BILIRRUBIN SMALL (NEGATIVE); URINE BLOOD LARGE; URINE GLUCOSE NEGATIVE (NEGATIVE); URINE KETONE NEGATIVE (NEGATIVE); URINE LEUKOCYTE MODERATE; URINE NITRATE POSITIVE; URINE UROBILINOGEN 0.2 E.U./dl
[2025-07-05 03:08] LABS: URINE PROTEIN >=300 (NEGATIVE)
[2025-07-05 03:09] LABS: URINE APPEARANCE TURBID; URINE COLOR DK YELLOW
[2025-07-05 03:10] LABS: URINE CRYSTALS FEW /HPF; URINE EPITHELIAL CELLS 0-4 /HPF; URINE MUCUS SCANT; URINE RBC LOADED /HPF; URINE WBC LOADED /hpf
[2025-07-05 03:57] LABS: COVID-19 AG NEGATIVE (NEGATIVE)
--- NOTE | 2025-07-05 06:47 | NUR ---
ELIZABETH CLASS (PATRICK) [phone] [phone] ISRAFEL (ZACH) [phone]
[2025-07-05] MEDS ORDERED: DEXTROSE 5% IV PRN (07:45)
[2025-07-05] MEDS ORDERED: DOBUTAMINE HCL IV PRN (07:45)
[2025-07-05] MEDS ORDERED: WATER IV PRN (07:45)
--- NOTE | 2025-07-05 08:39 | NUR ---
SE RECIBE PACIENTE EN CAMA #1 AREA DE ICU2. SE OFRECE ANGIE PARA EVALUAR CONDICION Y VICTORINO CUIDADOS CORRESPONDIENTES. PACIENTE CONECTADA A VENTILADOR MECANICO CON MONITOR CARDIACO Y SATUROMETRIA. IVF'S PATENTES BAJANDO DRIP DE LEVOPHED Y .9NSS, CON 4 AREAS DE VENOPUNCION PATENTES, LIBRES DE EDEMA Y/O ERITEMA. RIZVI PATENTE A GRAVEDAD CON ORINA AMARILLO INTENSO CON SEDIMENTACION. PACIENTE CON MANTA TERMICA. RESTRINGIDA X 2 EN EXTREMIDADES SUPERIORES, AREAS LIBRES DE EDEMA Y/O ERITEMA. BARANDAS ELEVADAS POR BAUER SEGURIDAD.SE MONITOREA POR CAMBIOS SIGNIFICATIVOS.
[2025-07-05] MEDS ORDERED: LINEZOLID IN DEXTROSE 5% 300 ML IV SCH (10:06)
[2025-07-05] MEDS ORDERED: FAMOTIDINE/PF 20 MG in 0.9 % SODIUM CHLORIDE 8 ML IV PUSH SCH (10:06)
[2025-07-05] MEDS ORDERED: MEROPENEM 500 MG/VIAL VIAL IV SCH (10:06)
[2025-07-05] MEDS ORDERED: HYDROCORTISONE SODIUM SUCC/PF 100 MG VIAL IV SCH (10:14)
[2025-07-05] MEDS ORDERED: 0.9 % SODIUM CHLORIDE 1,000 ML IV SCH (10:15)
[2025-07-05] MEDS ORDERED: SODIUM BICARBONATE 1 MEQ/ML DISP.SYRIN 50ML IV ONE ×2 (10:15→10:45)
[2025-07-05] MEDS ORDERED: ONDANSETRON HCL 4 MG in 0.9 % SODIUM CHLORIDE 50 ML IV PRN (10:15)
--- NOTE | 2025-07-05 10:15 | NUR ---
PACIENTE SIENDO EVALUADO POR DR Monica KHAN. SE INTENTA MEDIR B/P ANDREW LA MISMA NO KINGSLEY PRESIONES. SE COMIENZA EN .9NSS YUMIKO ORDEN MEDICA Y SE CONTINUA CON ORDENES MEDICAS Y TRATAMIENTO.
[2025-07-05] MEDS ORDERED: HYDROCORTISONE SODIUM SUCC/PF 100 MG VIAL ONE (10:17)
[2025-07-05] MEDS ORDERED: ENOXAPARIN SODIUM 30 MG/0.3 ML SYRINGE SUBCUTANEO SCH (10:20)
[2025-07-05] MEDS ORDERED: FAMOTIDINE/PF 20 MG/2 ML VIAL ONE (10:26)
[2025-07-05] MEDS ORDERED: NOREPINEPHRINE BITARTRATE 1 MG/ML AMPUL IV ONE ×2 (10:44)
[2025-07-05] MEDS ORDERED: DEXTROSE 50 % IN WATER 0.5 G/ML DISP.SYRIN IV PRN (10:45)
[2025-07-05] MEDS ORDERED: INSULIN LISPRO 1,000 UNIT/10 ML UNITS SUBCUTANEO PRN (10:45)
--- NOTE | 2025-07-05 16:01 | NUR ---
SE MANEJA PACIENTE YUMIKO ORDENES MEDICAS. SE REALIZA REQUISICION DE PRBC POR RN Shree MÉNDEZ. SE ADMINISTRAN MEDICAMENTOS YUMIKO ORDEN MEDICA. SE NOTIFICA A RN CHELO LEGGETT. ESTA COLOCA EL MISMO A LAS 2PM Y REFIERE PUEDE SER UTILIZADO. SE ENTREGA PACIENTE A RN SAHRA PARA CONTINUIDAD DE TRATAMIENTO Y PROCESO DE ADMISION.
[2025-07-05] MEDS ORDERED: HYDROCORTISONE SODIUM SUCC/PF 50 MG/ML ML IV SCH (18:00)
[2025-07-05 18:04] LABS: INR 1.56
[2025-07-05 18:23] LABS: ALT/SGPT 256.0 U/L (12-78); AST/SGOT 855.0 U/L (15-37); BILIRUBIN TOTAL 0.81 mg/dL (0.3-1.2); BILIRUBIN,CONJUGATED 0.21 mg/dL (0.0-0.2); GLUCOSE FASTING 119.0 mg/dL (65-100); OSMOLALITY SERUM 303.0 MOSM/KG (275-295)
[2025-07-05 18:49] LABS: BUN CREA RATIO 16.0 (7.0-25.0); GFR 10.85
[2025-07-05 18:51] LABS: CREATININE SERUM 4.01 mg/dL (0.55-1.02)
[2025-07-05] MEDS ORDERED: DEXTROSE 50 % IN WATER 0.5 G/ML VIAL IV ONE (22:00)
[2025-07-05] MEDS ORDERED: DEXTROSE 5 % AND 0.9 % NACL 1,000 ML IV SCH (22:00)
[2025-07-06] VITALS (7 sets, daily range): BP systolic 37–110; BP diastolic 30–79; O2SAT 66
[2025-07-06] MEDS ORDERED: DOPamine HCL IN DEXTROSE 5 % 250 ML IV SCH (01:15)
[2025-07-06] MEDS ORDERED: PHENYLEPHRINE HCL 10 MG/ML AMPUL ONE (04:57)
[2025-07-06] MEDS ORDERED: PHENYLEPHRINE HCL 20 MG in 0.9 % SODIUM CHLORIDE 250 ML IV SCH (05:15)
[2025-07-06] MEDS ORDERED: SODIUM BICARBONATE 1 MEQ/ML DISP.SYRIN 50ML IV ONE (05:32)
[2025-07-06] MEDS ORDERED: SODIUM BICARBONATE 150 MEQ in DEXTROSE 5 % IN WATER 1,000 ML IV SCH (05:45)
== END 2025-07-06 08:08 | disposition expired | DRG 208 ==
LOC: ER 20:30 → ICU 07-05 10:48 → SEC-K 07-05 10:48 → ICU-2 07-05 15:28 → ICU 07-05 17:35 → ICU-2 07-05 17:51 → ICU 07-05 22:09
PROVIDERS: Emergency Medicine; General Practice; ADMIT Internal Medicine; ATTEND Internal Medicine
PROC: 5A1945Z Respiratory Ventilation, 24-96 Consecutive Hours (ICD-10-PCS; principal; 2025-07-04)
PROC: 0BH17EZ Insertion of Endotracheal Airway into Trachea, Via Natural or Artificial Opening (ICD-10-PCS; 2025-07-04)
PROC: B24BZZZ Ultrasonography of Heart with Aorta (ICD-10-PCS; 2025-07-05)
PROC: B44HZZZ Ultrasonography of Bilateral Lower Extremity Arteries (ICD-10-PCS; 2025-07-05)
PROC: 30243N1 Transfusion of Nonautologous Red Blood Cells into Central Vein, Percutaneous Approach (ICD-10-PCS; 2025-07-05)
PROC: 05HY33Z Insertion of Infusion Device into Upper Vein, Percutaneous Approach (ICD-10-PCS; 2025-07-05)
DX: J96.00 Acute respiratory failure, unspecified whether with hypoxia or hypercapnia (principal); R65.21 Severe sepsis with septic shock; N17.9 Acute kidney failure, unspecified; I10 Essential (primary) hypertension; E11.9 Type 2 diabetes mellitus without complications; E03.9 Hypothyroidism, unspecified; E66.9 Obesity, unspecified; J44.9 Chronic obstructive pulmonary disease, unspecified; G47.33 Obstructive sleep apnea (adult) (pediatric); Z91.199 Patient's noncompliance with other medical treatment and regimen due to unspecified reason; Z74.01 Bed confinement status; E86.0 Dehydration; I95.9 Hypotension, unspecified; F41.9 Anxiety disorder, unspecified; L89.159 Pressure ulcer of sacral region, unspecified stage; L89.619 Pressure ulcer of right heel, unspecified stage; R00.0 Tachycardia, unspecified; Z78.1 Physical restraint status